=== PATIENT | male | born 1935 | race African-American/Black ===

== ENCOUNTER 2016-09-27 11:14 | Inpatient (IN) ==
--- NOTE | 2016-09-27 12:51 | Emergency Department Note ---
Disposition Clinical Impression: Wound of skin Disposition: Admitted As Inpatient Condition: Good General Adult HPI - General Chief complaint: ED General Medical Stated complaint: sent by wound care for admission Time Seen by Provider: 09/27/16 11:32 Source: patient, other Limitations: no limitations Nursing Notes Reviewed: Yes Vital Signs Reviewed: Yes - History of Present Illness HPI Narrative: A short history of significant peripheral vascular disease and a right above-the -knee amputation the presents from the wound care for admission secondary to skin breakdown in his inability to care for himself at home. Patient has not had fevers or chills or other infectious symptoms. After discussion with Dr. Daly the patient has a has cancer and kids that both work. Unable to care for himself at home. Patient does not have a primary care physician. Patient's skin breakdown is likely secondary to irritation from what she describes as urine burn. She recommends nystatin cream but no antibiotics at this time. Pain Scale: 9 - Related Data Home Medications Medication Instructions Recorded Confirmed Albuterol Sulfate [Proair 90 mcg IH AD 09/06/16 09/06/16 Respiclick] Aspirin [Lo-Dose Aspirin EC] 81 mg PO DAILY 09/06/16 09/06/16 Baclofen 10 mg PO TID 09/06/16 09/06/16 Clopidogrel [Plavix] 75 mg PO DAILY 09/06/16 09/06/16 Docusate [Colace] 100 mg PO DAILY 09/06/16 09/06/16 Gabapentin [Neurontin] 800 mg PO TID 09/06/16 09/06/16 Metoprolol [Lopressor] 12.5 mg PO DAILY 09/06/16 09/06/16 Mv-Mn/FA/Vit K/Lycop/Lut/Coq10 1 each PO DAILY 09/06/16 09/06/16 [Daily Multivitamin Capsule] Oxycodone HCl/Acetaminophen 1 each PO Q4H PRN 09/06/16 09/06/16 [Percocet 5-325 mg Tablet] Primidone [Mysoline] 50 mg PO Q8HR 09/06/16 09/06/16 Simvastatin [Zocor] 20 mg PO HS 09/06/16 09/06/16 traZODone [TraZODone] 50 mg PO HS 09/06/16 09/06/16 Previous Rx's Medication Instructions Recorded Mirtazapine 7.5 mg PO HS #30 tablet 09/06/16 Allergies Allergy/AdvReac Type Severity Reaction Status Date / Time No Known Allergies Allergy Verified 09/27/16 11:25 Review of Systems: CONSTITUTIONAL: No weight loss, fever, chills, weakness or fatigue. HEENT: Eyes: No visual changes. Ears, Nose, Throat: No hearing loss, difficulty talking or unable to swallow. SKIN: Skin wounds CARDIOVASCULAR: No chest pain, chest pressure or chest discomfort. No palpitations or edema. RESPIRATORY: No shortness of breath, cough or sputum. GASTROINTESTINAL: No anorexia, nausea, vomiting or diarrhea. No abdominal pain or blood. GENITOURINARY: No burning on urination or hematuria. NEUROLOGICAL: No headache, dizziness, syncope, paralysis, ataxia, numbness or tingling in the extremities. No change in bowel or bladder control. MUSCULOSKELETAL: No muscle pain, back pain, joint pain or stiffness. Past Medical History - Past Medical History Medical history: Reports: coronary artery disease, peripheral artery disease Surgical history: Reports: coronary bypass (CABG), other Psychiatric history: Reports: no psych history - Social History Smoking Status: Current every day smoker Smokeless Tobacco Status: No Alcohol use: Reports: none Drug use: Reports: none Physical Exam General appearance: NAD, conversant Eyes: anicteric sclerae, moist conjunctivae; PERRL HENT: Atraumatic; oropharynx clear with moist mucous membranes and no mucosal ulcerations Neck: Normal inspection; Trachea midline; FROM, supple Lungs: CTA, with normal respiratory effort and no intercostal retractions CV: RRR, no MRGs Abdomen: Soft, non-tender; no rebound or gaurding Extremities: Right AKA No peripheral edema or extremity lymphadenopathy Skin: The patient's buttocks and lower back have excoriations and redness consistent with loss of the epidermis secondary to irritation. Psych: Appropriate mood and affect Neuro: alert and oriented to person, place and time - General Limitations: no limitations General appearance: alert Course - Consultations Consultation #1: Discussed with Dr. Daly. Patient has had his nonhealing back wound that she believes is consistent with urine burn. The patient lives with his and kids however the has cancer and the kids both work. He has no primary care. Patient will need evaluated by social work as well as to have a Oshea placed in nystatin cream placed on his lower back. Consultation #2: Discussed with hospitalist. Patient accepted for admission. 1430 Vital Signs Temperature 97.9 F 09/27/16 11:25 Pulse Rate 109 09/27/16 11:25 Respiratory Rate 20 09/27/16 11:25 Blood Pressure 96/58 09/27/16 11:25 O2 Sat by Pulse Oximetry 92 09/27/16 11:25 Temperature 97.9 F 09/27/16 11:25 Pulse Rate 94 09/27/16 13:55 Respiratory Rate 18 09/27/16 15:11 Blood Pressure 118/56 09/27/16 15:11 O2 Sat by Pulse Oximetry 97 09/27/16 13:55 Oxygen Delivery Oxygen Delivery Room Air Medical Decision Making - MDM Narrative Medical decision making narrative: I examined this patient and my medical decision-making was reviewed with the Resident Physician. I agree with the documented findings, disposition and treatment plan as described except to the extent set forth below. Patient seen and evaluated today by Dr. Coronado and myself, high-grade his evaluation and management plan, supervised the care of the patient's stay. Patient's accompanied by family. He was sent in by [facility] Doctor Addy , for admission and social service evaluation. Patient's had breakdown on his skin. This appears to be first-degree breakdown from the top of his buttocks on his back. Dr. Daly suspected this may be from the patient urinating on himself. Family states he is not able Jansen side and only lays on his back. Patient has a history of peripheral vascular delay but no diabetes per them. Brain basic labs. Place a Oshea for hygiene reasons. Admit him and involve group social worker. Family's agreement with this plan as this patient. - Lab Data Result diagrams: 09/27/16 13:16 09/27/16 13:16 Lab Results 09/27/16 09/27/16 09/27/16 Range/Units 13:16 13:16 13:19 WBC 13.4 H (4.3-11.1) K/mcL RBC 5.23 (4.19-5.50) M/mcL Hgb 12.5 L (12.9-16.9) g/dL Hct 42.0 (37.5-50.1) % MCV 80.3 L (83.0-100.0) fL MCH 23.9 L (28.0-33.3) pg MCHC 29.8 L (31.6-35.5) g/dL RDW 13.2 (11.5-14.5) % Plt Count 187 (140-400) K/mcL MPV 12.0 (9.4-12.4) fL Immature Gran % 0.4 (0-4) % Seg Neutrophils % 75.0 % Lymphocytes % 14.4 % Monocytes % 6.2 % Eosinophils % 3.6 % Basophils % 0.4 % Neutrophils # 10.1 H (1.6-8.9) K/mcL Lymphocytes # 1.9 (0.6-4.6) K/mcL Monocytes # 0.8 (0.0-1.3) K/mcL Eosinophils # 0.5 (0.0-0.6) K/mcL Basophils # 0.1 (0.0-0.2) K/mcL Sodium 138 (136-145) mEq/L Potassium 4.1 (3.5-4.5) mEq/L Chloride 101 (98-109) mEq/L Carbon Dioxide 30 H (19-29) mEq/L BUN 16 (8-26) mg/dL Creatinine 0.70 L (0.72-1.25) mg/dL Est GFR ( Amer) > 60 (> 60) Est GFR (Non-Af Amer) > 60 (> 60) BUN/Creatinine Ratio 23 (6-26) Glucose 92 (70-99) mg/dL Calculated Osmolality 287 (280-300) Calcium 9.5 (8.6-10.8) mg/dL Total Bilirubin 0.5 (0.2-1.2) mg/dL AST 12 (5-34) Units/L ALT 6 (0-55) Units/L Alkaline Phosphatase 89 (38-126) Units/L Serum Total Protein 7.6 (6.0-8.3) g/dL Albumin 3.1 L (3.5-5.0) g/dL Globulin 4.5 H (2.4-3.5) g/dL Albumin/Globulin Ratio 0.7 L (1.1-2.2) Urine Color Dark Yellow (Yellow) Urine Clarity Turbid A (Clear) Urine pH 7.0 (5.0-8.0) pH Units Ur Specific [place] 1.023 (1.010-1.025) Urine Protein 100 H (Neg-Trace) mg/dL Urine Glucose (UA) Normal (Normal) mg/dL Urine Ketones Negative (Negative) mg/dL Urine Blood Trace H (Negative) Urine Nitrite Positive A (Negative) Urine Bilirubin Small H (Negative) Urine Urobilinogen Normal (Normal) mg/dL Ur Leukocyte Esterase Large H (Negative) Urine Microscopic RBC 5-15 H (0-3) per hpf Urine Microscopic WBC TNTC H (0-3) per hpf Ur Squamous Epith Cells Many H (None-Few) per lpf Urine Bacteria Many H (None-Few) per hpf Hyaline Casts Few (None-Few) per lpf Ur Culture Indicated? YES A (NO)
[2016-09-27 13:48] LABS: Basophils # 0.1 K/mcL (0.0-0.2); Basophils % 0.4 %; Eosinophils # 0.5 K/mcL (0.0-0.6); Eosinophils % 3.6 %; Hemoglobin 12.5 g/dL (12.9-16.9); Immature Granulocytes % 0.4 % (0-4); Lymphocytes # 1.9 K/mcL (0.6-4.6); Lymphocytes % 14.4 %; Mean Corpuscular HGB Conc 29.8 g/dL (31.6-35.5); Mean Corpuscular Hemoglobin 23.9 pg (28.0-33.3); Mean Corpuscular Volume 80.3 fL (83.0-100.0); Monocytes # 0.8 K/mcL (0.0-1.3); Monocytes % 6.2 %; Neutrophils # 10.1 K/mcL (1.6-8.9); Platelet Count 187 K/mcL (140-400); Red Blood Count 5.23 M/mcL (4.19-5.50); Red Cell Distribution Width 13.2 % (11.5-14.5)
[2016-09-27 14:00] LABS: Alanine Aminotransferase 6 Units/L (0-55); Albumin 3.1 g/dL (3.5-5.0); Albumin/Globulin Ratio 0.7 (1.1-2.2); Alkaline Phosphatase 89 Units/L (38-126); Aspartate Amino Transferase 12 Units/L (5-34); BUN/Creatinine Ratio 23 (6-26); Bilirubin,Total 0.5 mg/dL (0.2-1.2); Blood Urea Nitrogen 16 mg/dL (8-26); Calcium 9.5 mg/dL (8.6-10.8); Carbon Dioxide 30 mEq/L (19-29); Chloride 101 mEq/L (98-109); Globulin 4.5 g/dL (2.4-3.5); Glucose 92 mg/dL (70-99); Osmolality,Calculated 287 (280-300); Potassium 4.1 mEq/L (3.5-4.5); Sodium 138 mEq/L (136-145); Total Protein 7.6 g/dL (6.0-8.3); eGFR For African Americans > 60 (> 60); eGFR For Non-African Americans > 60 (> 60)
[2016-09-27 14:00] LABS: Bilirubin,Urine Small (Negative); Blood,Urine Trace (Negative); Clarity,Urine Turbid (Clear); Color,Urine Dark Yellow (Yellow); Glucose,Urine (UA) Normal (Normal); Ketones,Urine Negative (Negative); Leukocyte Esterase,Urine Large (Negative); Nitrite,Urine Positive (Negative); Protein,Urine 100 mg/dL (Neg-Trace); Specific Gravity,Urine 1.023 (1.010-1.025); Urobilinogen,Urine Normal (Normal)
[2016-09-27 14:02] LABS: Bacteria,Urine Many per hpf (None-Few); Hyaline Casts,Urine Few per lpf (None-Few); Squamous Epithelial Cell,Urine Many per lpf (None-Few); WBC,Urine TNTC per hpf (0-3)
[2016-09-27] MEDS ORDERED: Ondansetron ODT 4 MG TAB.RAPDIS SL PRN (15:15)
[2016-09-27] MEDS ORDERED: Naloxone 0.4 MG/ML INJ IVP PRN (15:15)
--- NOTE | 2016-09-27 15:35 | Internal Med History&Physical ---
<Delia Khan M - Last Filed: 09/27/16 22:43> Date of Encounter: 09/27/16 Time of Encounter: 15:23 Assessment and Plan (1) Sepsis Current visit: Yes Status: Acute Patient with UTI, cutaneous candidiasis, elevated WBC to 13.4, and he is tachycardic with HR 90s-100s, meeting criteria for sepsis. Blood cultures ordered Lactate ordered Antibiotics: vanc and rocephin ordered Blood pressure stable, will give fluids 0.9NS at 80mL/hr Qualifiers: Sepsis type: sepsis due to unspecified organism Qualified Code(s): A41.9 - Sepsis, unspecified organism (2) UTI (urinary tract infection) Current visit: Yes Status: Acute Patient reporting dysuria. UA consistent with UTI. IVPB Rocephin. Await culture results. Qualifiers: Urinary tract infection type: acute cystitis Hematuria presence: with hematuria Qualified Code(s): N30.01 - Acute cystitis with hematuria (3) Cutaneous candidiasis Current visit: Yes Status: Acute Patient with large area of skin breakdown and rash consistent with cutaneous candidiasis. Patient is incontinent of stool and urine, and is unable to clean himself up which is likely contributing to his candidiasis. Topical clotrimazole BID Continue home dose of PO fluconazole. Wound Care team consulted for further recommendations. (4) Failure to thrive Current visit: Yes Status: Chronic Patient reports he is unable to care for himself, is incontinent of stool and urine and not able to clean himself up. He has been losing weight and not eating as well. Social work consulted for dishcharge planning and likely placement to long-term care on discharge. Consults to Nutrition, PT and OT. Qualifiers: Failure to thrive age range: in adult Qualified Code(s): R62.7 - Adult failure to thrive (5) Wound of skin Current visit: Yes Status: Acute Patient with stage 2 breakdown on sacrum surrounded by the cutaneous candidiasis. Wound care team consulted for treatment. (6) DVT prophylaxis Current visit: Yes Status: Acute anti-embolic stockings Lovenox SQ daily Internal Medicine - H&P: HPI Chief complaint: failure to thrive, skin infection Admitted From: Emergency Dept Plans for Post Hospital Care: Transfer Obstetrics Tech Care History of present illness: Mr. Bartlett is a 81 year old male with hyperlipidemia, coronary artery disease status post CABG and stent placement, peripheral vascular disease status post right [id number] amputation presents to the emergency department today from the wound care clinic for complaints of nonhealing fungal rash on his backside. Patient has been following with the wound clinic as an outpatient and rashes worsened, there are concerns about patient's inability to care for self, as well as patient's family is not able to care for patient. Patient reports that rash is painful. He reports he is incontinent of stool and urine, and has pain and burning with urination. Patient denies any chest pain, palpitations, shortness of breath, headache, lightheadedness, fever or chills. He does report night sweats. Evaluation in the emergency department revealed elevated white blood cell count of 13.4. His urinalysis was consistent with UTI. Patient was tachycardic with heart rate in the low 100s or high 90s. Chest x- ray showed stable chronic small left pleural effusion. On exam, patient alert and oriented, mildly diaphoretic, in no acute distress. Lungs with mild rhonchi bilaterally, heart is regular rate and rhythm. Abdomen soft nontender positive bowel sounds. Patient has a large area of skin breakdown in his lower back, stage II in the sacral area surrounded by significant skin irritation consistent with cutaneous candidiasis. Past Med Surg Social Fam HX - Past Medical History Medical history: coronary artery disease, hyperlipidemia, peripheral artery disease Psychiatric history: no psych history - Past Surgical History Surgical History: coronary bypass (CABG), other (right AKA) - Social History Smoking Status: Current every day smoker (65 pack year history) Packs per day: 1 Smokeless Tobacco Status: No Alcohol use: none Drug use: none - Family History Mother Living Status: Age at : 78 Hx Family Cardiac Disorders: No Hx Family Respiratory Disorders: No Hx Family Cancer: No Hx Family GI Disorders: Yes Hx Family Endocrine Disorder: No Hx Family Neuromuscular Disorders: No Hx Family Neurologic Disorders: No Hx Family HEENT Disorders: No Hx Family Autoimmune Disorders: No Father Family Member Ethnicity: Unknown Living Status: Age at : 63 Cause of : MD Hx Family Cardiac Disorders: Yes Hx Family Respiratory Disorders: No Hx Family Cancer: No Hx Family GI Disorders: No Hx Family Endocrine Disorder: No Hx Family Neuromuscular Disorders: No Hx Family Neurologic Disorders: No Hx Family HEENT Disorders: No Hx Family Autoimmune Disorders: No Internal Medicine - H&P: Meds Aspirin [Lo-Dose Aspirin EC] 81 mg PO DAILY 09/06/16 [History] Baclofen 10 mg PO TID 09/06/16 [History] Clopidogrel [Plavix] 75 mg PO DAILY 09/06/16 [History] Docusate [Colace] 100 mg PO DAILY 09/06/16 [History] Gabapentin [Neurontin] 800 mg PO TID 09/06/16 [History] Metoprolol [Lopressor] 25 mg PO DAILY 09/06/16 [History] Mirtazapine 7.5 mg PO HS #30 tablet 09/06/16 [Rx] Mv-Mn/FA/Vit K/Lycop/Lut/Coq10 [Daily Multivitamin Capsule] 1 tab PO DAILY 09/06 [History] Oxycodone HCl/Acetaminophen [Percocet 5-325 mg Tablet] 1 tab PO Q4H PRN [History] Primidone [Mysoline] 100 mg PO Q8HR 09/06/16 [History] Simvastatin [Zocor] 20 mg PO HS 09/06/16 [History] traZODone [TraZODone] 50 mg PO HS 09/06/16 [History] Albuterol Sulfate [Ventolin Hfa] 2 puff IH Q6H PRN 09/27/16 [History] Cyanocobalamin (Vitamin B-12) [Vitamin B12] 1,000 mcg PO DAILY 09/27/16 [History ] Cyprohepatdine [Periactin] 4 mg PO TID 09/27/16 [History] Fluconazole [Diflucan] 100 mg PO DAILY 09/27/16 [History] Allergies No Known Allergies Allergy (Verified 09/27/16 11:25) All Systems PM: A 10-system review of systems was performed and is negative for pertinent findings except as documented above in the HPI. - Constitutional Constitutional: night sweats, no chills, no fever(s) - EENT Eyes: no change in vision, no discharge, no pain, no photophobia Ears: no ear discharge, no ear pain, no tinnitus Nose, mouth and throat: no dysphagia, no nasal discharge, no neck pain, no sore throat - Cardiovascular Cardiovascular ROS IM: no chest pain, no diaphoresis, no dyspnea, no lightheadedness, no palpitations, no syncope - Respiratory Respiratory: no cough, no dyspnea, no wheezing, no excessive phlegm production - Gastrointestinal Gastrointestinal: diarrhea, no abdominal pain, no hematemesis, no hematochezia, no melena, no nausea, no vomiting - Genitourinary Genitourinary ROS male: dysuria, urinary incontinence - Musculoskeletal Musculoskeletal ROS IM: no numbness, no tingling - Integumentary Integumentary IM: non-healing lesions, rash, skin ulcer, no unusual bruising - Neurological Neurological ROS: no confusion, no convulsions, no focal weakness, no numbness, no tingling, no tremor(s) - Hematologic/Lymphatic Hematologic/Lymphatic: no easy bruising - Constitutional Vitals: Temp Pulse Resp BP Pulse Ox 97.9 F 94 18 118/56 97 09/27/16 11:25 09/27/16 13:55 09/27/16 15:11 09/27/16 15:11 09/27/16 13:55 General appearance: Present: A&O X 3, pleasant, no acute distress - Head Head exam: Present: atraumatic, normocephalic - Eye Eye exam: Present: PERRL, conjuntiva pink, sclera anicteric Pupils: Present: PERRL - Neck Neck exam general surgery: Present: supple, trachea midline. Absent: lymphadenopathy - Respiratory Respiratory exam: Present: rhonchi. Absent: accessory muscle use, rales, wheezes - Cardiovascular Cardiovascular exam: Present: RRR, +S1, +S2. Absent: diastolic murmur, gallop, rubs, systolic murmur - GI/Abdominal GI/Abdominal exam: Present: normal bowel sounds, soft, no peritoneal signs. Absent: distended, tenderness - Extremities Exam Extremities exam: Present: warm, radial pulses palpable and symetrical. Absent : calf tenderness, cyanotic, pedal edema - Neurological Exam Neurological exam: Present: CN II-XII intact, oriented X3, no focal deficits. Absent: facial droop, speech deficit - Skin Skin exam: Present: excoriation Additional comments: Large area of skin break down and rash consistent with cutaneous candidiasis on lower back. Internal Med - H&P Results - Labs CBC & Chem 7: 09/27/16 13:16 09/27/16 13:16 Labs: All Lab Results (24 Hours) 09/27/16 09/27/16 09/27/16 Range/Units 13:16 13:16 13:19 WBC 13.4 H (4.3-11.1) K/mcL RBC 5.23 (4.19-5.50) M/mcL Hgb 12.5 L (12.9-16.9) g/dL Hct 42.0 (37.5-50.1) % MCV 80.3 L (83.0-100.0) fL MCH 23.9 L (28.0-33.3) pg MCHC 29.8 L (31.6-35.5) g/dL RDW 13.2 (11.5-14.5) % Plt Count 187 (140-400) K/mcL MPV 12.0 (9.4-12.4) fL Immature Gran % 0.4 (0-4) % Seg Neutrophils % 75.0 % Lymphocytes % 14.4 % Monocytes % 6.2 % Eosinophils % 3.6 % Basophils % 0.4 % Neutrophils # 10.1 H (1.6-8.9) K/mcL Lymphocytes # 1.9 (0.6-4.6) K/mcL Monocytes # 0.8 (0.0-1.3) K/mcL Eosinophils # 0.5 (0.0-0.6) K/mcL Basophils # 0.1 (0.0-0.2) K/mcL Sodium 138 (136-145) mEq/L Potassium 4.1 (3.5-4.5) mEq/L Chloride 101 (98-109) mEq/L Carbon Dioxide 30 H (19-29) mEq/L BUN 16 (8-26) mg/dL Creatinine 0.70 L (0.72-1.25) mg/dL Est GFR ( Amer) > 60 (> 60) Est GFR (Non-Af Amer) > 60 (> 60) BUN/Creatinine Ratio 23 (6-26) Glucose 92 (70-99) mg/dL Calculated Osmolality 287 (280-300) Calcium 9.5 (8.6-10.8) mg/dL Total Bilirubin 0.5 (0.2-1.2) mg/dL AST 12 (5-34) Units/L ALT 6 (0-55) Units/L Alkaline Phosphatase 89 (38-126) Units/L Serum Total Protein 7.6 (6.0-8.3) g/dL Albumin 3.1 L (3.5-5.0) g/dL Globulin 4.5 H (2.4-3.5) g/dL Albumin/Globulin Ratio 0.7 L (1.1-2.2) Urine Color Dark Yellow (Yellow) Urine Clarity Turbid A (Clear) Urine pH 7.0 (5.0-8.0) pH Units Ur Specific [place] 1.023 (1.010-1.025) Urine Protein 100 H (Neg-Trace) mg/dL Urine Glucose (UA) Normal (Normal) mg/dL Urine Ketones Negative (Negative) mg/dL Urine Blood Trace H (Negative) Urine Nitrite Positive A (Negative) Urine Bilirubin Small H (Negative) Urine Urobilinogen Normal (Normal) mg/dL Ur Leukocyte Esterase Large H (Negative) Urine Microscopic RBC 5-15 H (0-3) per hpf Urine Microscopic WBC TNTC H (0-3) per hpf Ur Squamous Epith Cells Many H (None-Few) per lpf Urine Bacteria Many H (None-Few) per hpf Hyaline Casts Few (None-Few) per lpf Ur Culture Indicated? YES A (NO) - Diagnostic Studies Chest x-ray Additional comments: Chest X-Ray 09/27/16 13:53 IMPRESSION: Stable chronic small left pleural effusion versus pleural parenchymal scarring. No acute cardiopulmonary disease. D/ / Gregory Mcclain MD / Gregory Mcclain MD Interpreting Provider: Gregory Mcclain MD <Joni Arevalo - Last Filed: 09/28/16 08:11> Date of Encounter: 09/28/16 Internal Medicine - H&P: HPI History of present illness: Mr. Bartlett is a 81 year old male All Systems PM: A 10-system review of systems was performed and is negative for pertinent findings except as documented above in the HPI. - Constitutional Vitals: Temp Pulse Resp BP Pulse Ox 98.2 F 96 18 148/79 95 09/28/16 06:48 07/29/17 06:48 09/28/16 06:48 09/28/16 06:48 09/28/16 06:48 Internal Med - H&P Results - Labs CBC & Chem 7: 09/28/16 05:27 09/28/16 05:27 Labs: Short CBC 09/28/16 Range/Units 05:27 WBC 10.2 (4.3-11.1) K/mcL Hgb 11.5 L (12.9-16.9) g/dL Hct 37.7 (37.5-50.1) % Plt Count 179 (140-400) K/mcL Neutrophils # 7.0 (1.6-8.9) K/mcL BMP 09/28/16 05:27 Sodium 138 Potassium 3.7 Chloride 105 Carbon Dioxide 25 BUN 13 Creatinine 0.58 L Glucose 72 Calcium 8.6 - Attending Attestation I have personally performed a face to face evaluation on this patient and I discussed the assessment and plan with the nurse practitioner. I have reviewed and agree with the documented care plan. History and Exam by me shows: Mr. Bartlett is a 81 year old male with hyperlipidemia, coronary artery disease status post CABG and stent placement, peripheral vascular disease status post right [id number] amputation presents to the emergency department today from the wound care clinic for complaints of nonhealing fungal rash on his backside. Patient has been following with the wound clinic as an outpatient and rashes worsened, there are concerns about patient's inability to care for self, as well as patient's family is not able to care for patient. Gen: A,A, O X 3 Back: extensive erythematous rash spreading from mid buttock to lower lumbar region b/l. Several open areas with out any discharge / drianage noticed a/p 1. Sepsis with UTI and Lower back cellulitis 2. Lower back skin excoriation due to urine associated contact dermatitis 3. Cutaneous candidiasis Placed him on broad spec abx Vancomycin and Rocephin Topical anti fungal cream consulted SW for possible SNF placement for pt's severe deconditioning
[2016-09-27] MEDS ORDERED: Vancomycin 1,000 MG in D5% in Water 250 ML IVPB SCH (16:00)
[2016-09-27] MEDS: 0.9 % Sodium Chloride 1,000 ML IVC SCH (17:10)
[2016-09-27] MEDS: Vancomycin 1,000 MG in D5% in Water 250 ML IVPB SCH (17:11)
[2016-09-28] MEDS: Primidone 50 MG TABLET PO SCH ×4 (02:21→22:03)
[2016-09-28] MEDS: Cyprohepatdine 4 MG TABLET PO SCH ×4 (02:22→22:04)
[2016-09-28] MEDS: Mirtazapine 15 MG TABLET PO SCH ×2 (02:22→22:04)
[2016-09-28] MEDS: *HR* Enoxaparin 40 MG/0.4 ML SYRINGE SQ SCH (06:08)
[2016-09-28 07:07] LABS: Basophils # 0.1 K/mcL (0.0-0.2); Basophils % 0.5 %; Eosinophils # 0.5 K/mcL (0.0-0.6); Eosinophils % 4.7 %; Hematocrit 37.7 % (37.5-50.1); Hemoglobin 11.5 g/dL (12.9-16.9); Immature Granulocytes % 0.3 % (0-4); Lymphocytes % 19.9 %; Mean Corpuscular HGB Conc 30.5 g/dL (31.6-35.5); Mean Corpuscular Hemoglobin 24.4 pg (28.0-33.3); Mean Platelet Volume 12.8 fL (9.4-12.4); Monocytes # 0.7 K/mcL (0.0-1.3); Monocytes % 6.5 %; Platelet Count 179 K/mcL (140-400); Red Blood Count 4.71 M/mcL (4.19-5.50); Red Cell Distribution Width 13.2 % (11.5-14.5); Segmented Neutrophils % 68.1 %
[2016-09-28 07:31] LABS: BUN/Creatinine Ratio 22 (6-26); Blood Urea Nitrogen 13 mg/dL (8-26); Carbon Dioxide 25 mEq/L (19-29); Chloride 105 mEq/L (98-109); Potassium 3.7 mEq/L (3.5-4.5); Sodium 138 mEq/L (136-145)
[2016-09-28 07:32] LABS: Calcium 8.6 mg/dL (8.6-10.8); Glucose 72 mg/dL (70-99); Osmolality,Calculated 285 (280-300); eGFR For African Americans > 60 (> 60); eGFR For Non-African Americans > 60 (> 60)
[2016-09-28] MEDS: 0.9 % Sodium Chloride 1,000 ML IVC SCH (08:14)
[2016-09-28] MEDS: Aspirin Enteric Coated 81 MG Tablet PO SCH (08:14)
[2016-09-28] MEDS: Fluconazole 100 MG TABLET PO SCH (08:14)
[2016-09-28] MEDS: Baclofen 10 MG TABLET PO SCH ×3 (08:14→22:04)
[2016-09-28] MEDS: Gabapentin 400 MG CAPSULE PO SCH ×3 (08:14→22:04)
[2016-09-28] MEDS: Clotrimazole 1% CRM 15 GM TUBE TP SCH (08:15)
--- NOTE | 2016-09-28 14:41 | Internal Med Progress Note ---
Date of Encounter: 09/29/16 Time of Encounter: 14:29 - Assessment and plan (1) Sepsis Current Visit: Yes Status: Acute Assessment and plan: Urine culture: Pending. Blood culture: Pending Tachycardia is settling down. Presently on vancomycin/ceftriaxone. Plan: We will continue same antibiotics for now. Qualifiers: Sepsis type: sepsis due to unspecified organism Qualified Code(s): A41.9 - Sepsis, unspecified organism (2) UTI (urinary tract infection) Current Visit: Yes Status: Acute Assessment and plan: Urinary tract infection is the likely source for sepsis. Presently on appropriate antibiotics. Awaiting for blood/urine cultures. Qualifiers: Urinary tract infection type: acute cystitis Hematuria presence: with hematuria Qualified Code(s): N30.01 - Acute cystitis with hematuria (3) Wound of skin Current Visit: Yes Status: Acute Assessment and plan: Patient has a likely stage II sacral ulcer surrounded by possible candidiasis Wound care consult ordered by admitting team. (4) Failure to thrive Current Visit: Yes Status: Chronic Assessment and plan: Poor support system. Unable to take care of himself. 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 Qualifiers: Failure to thrive age range: in adult Qualified Code(s): R62.7 - Adult failure to thrive (5) DVT prophylaxis Current Visit: Yes Status: Acute Assessment and plan: Antiembolic stockings. - Subjective Interval history: Patient seen and examined. Chart reviewed. Patient is comfortably lying in bed. Patient denies chest pain, shortness of breath, abdominal pain, nausea, vomiting , diarrhea and dizziness - Constitutional Vitals: Temp Pulse Resp BP Pulse Ox 98.5 F 94 16 154/76 96 09/28/16 10:08 09/28/16 10:08 09/28/16 10:08 09/28/16 10:08 09/28/16 10:08 General appearance: Present: A&O X 3, pleasant, no acute distress - Head Head exam: Present: atraumatic, normocephalic - Eye Eye exam: Present: PERRL, conjuntiva pink, sclera anicteric Pupils: Present: PERRL - Neck Neck exam general surgery: Present: supple, trachea midline. Absent: lymphadenopathy - Respiratory Respiratory exam: Present: CTAB. Absent: accessory muscle use, rales, rhonchi, wheezes - Cardiovascular Cardiovascular exam: Present: RRR, +S1, +S2. Absent: diastolic murmur, gallop, rubs, systolic murmur - GI/Abdominal GI/Abdominal exam: Present: normal bowel sounds, soft, no peritoneal signs. Absent: distended, tenderness - Extremities Exam Extremities exam: Present: warm, radial pulses palpable and symetrical. Absent : calf tenderness, cyanotic, pedal edema Additional comments: Right below-knee amputation - Neurological Exam Neurological exam: Present: CN II-XII intact, oriented X3, no focal deficits. Absent: pronater drift, facial droop, speech deficit - Skin Skin exam: Present: dry, intact Internal Medicine: Result - Labs CBC & Chem 7: 09/28/16 05:27 09/28/16 05:27 Labs: Short CBC 09/28/16 Range/Units 05:27 WBC 10.2 (4.3-11.1) K/mcL Hgb 11.5 L (12.9-16.9) g/dL Hct 37.7 (37.5-50.1) % Plt Count 179 (140-400) K/mcL Neutrophils # 7.0 (1.6-8.9) K/mcL BMP 09/28/16 05:27 Sodium 138 Potassium 3.7 Chloride 105 Carbon Dioxide 25 BUN 13 Creatinine 0.58 L Glucose 72 Calcium 8.6 - VTE Documentation of Mechanical Device: Graduated compression elastic hosiery Consult Discharge Plan - Plan Referrals: NONE,PCP [Primary Care Provider] -
[2016-09-28] MEDS: Vancomycin 1,000 MG in D5% in Water 250 ML IVPB SCH (15:38)
[2016-09-28] MEDS: traZODone 50 MG TABLET PO SCH (22:04)
[2016-09-29] MEDS: 0.9 % Sodium Chloride 1,000 ML IVC SCH ×3 (00:02→22:18)
[2016-09-29] MEDS: Primidone 50 MG TABLET PO SCH ×3 (05:38→22:14)
[2016-09-29] MEDS: *HR* Enoxaparin 40 MG/0.4 ML SYRINGE SQ SCH (05:38)
[2016-09-29] MEDS: Clotrimazole 1% CRM 15 GM TUBE TP SCH ×4 (05:39→23:37)
[2016-09-29] MEDS: Gabapentin 400 MG CAPSULE PO SCH ×3 (09:33→22:14)
[2016-09-29] MEDS: Aspirin Enteric Coated 81 MG Tablet PO SCH (09:33)
[2016-09-29] MEDS: Acetaminophen 325 MG TABLET PO PRN (09:33)
[2016-09-29] MEDS: Cyprohepatdine 4 MG TABLET PO SCH ×3 (09:33→22:15)
[2016-09-29] MEDS: Baclofen 10 MG TABLET PO SCH ×3 (09:33→22:14)
[2016-09-29] MEDS: Fluconazole 100 MG TABLET PO SCH (09:33)
[2016-09-29] MEDS: Nystatin POWDER 30 GM BOTTLE TP SCH ×3 (14:13→23:37)
[2016-09-29] MEDS: Vancomycin 1,000 MG in D5% in Water 250 ML IVPB SCH (15:28)
--- NOTE | 2016-09-29 17:46 | Internal Med Progress Note ---
Date of Encounter: 09/29/16 Time of Encounter: 17:44 - Assessment and plan (1) Sepsis Current Visit: Yes Status: Acute Assessment and plan: Urine culture: Pending. Blood culture: Pending Tachycardia is settling down. Presently on vancomycin/ceftriaxone. Plan: We will continue same antibiotics for now. 09/29/2016. Urine culture: Proteus mirabilis: Pansensitive strain. Blood cultures: Negative growths so far. Vital parameters are improving. Plan: Discontinue vancomycin. We will continue ceftriaxone intravenously. Qualifiers: Sepsis type: sepsis due to unspecified organism Qualified Code(s): A41.9 - Sepsis, unspecified organism (2) UTI (urinary tract infection) Current Visit: Yes Status: Acute Assessment and plan: Urinary tract infection is the likely source for sepsis. Presently on appropriate antibiotics. Awaiting for blood/urine cultures. 09/29/2016. Urinary tract infection is likely secondary to Proteus mirabilis. Proteus mirabilis is pansensitive. Patient is on ceftriaxone. Qualifiers: Urinary tract infection type: acute cystitis Hematuria presence: with hematuria Qualified Code(s): N30.01 - Acute cystitis with hematuria (3) Wound of skin Current Visit: Yes Status: Acute Assessment and plan: Patient has a likely stage II sacral ulcer surrounded by possible candidiasis Wound care consult ordered by admitting team. (4) Failure to thrive Current Visit: Yes Status: Chronic Assessment and plan: Poor support system. Unable to take care of himself. 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 Qualifiers: Failure to thrive age range: in adult Qualified Code(s): R62.7 - Adult failure to thrive (5) DVT prophylaxis Current Visit: Yes Status: Acute Assessment and plan: Antiembolic stockings. - Subjective Interval history: Patient seen and examined. Chart reviewed. Patient is comfortably lying in bed. Patient denies chest pain, shortness of breath, abdominal pain, nausea, vomiting , diarrhea and dizziness 09/29/2016. Patient is comfortably lying in the bed. Chart reviewed. Asians seen and examined along with the resident. Patient denies any dysuria, shortness of breath, abdominal pain or vomiting. - Constitutional Vitals: Temp Pulse Resp BP Pulse Ox 98.3 F 84 16 103/68 95 09/29/16 15:11 09/29/16 15:11 09/29/16 15:11 09/29/16 15:11 09/29/16 15:11 General appearance: Present: A&O X 3, pleasant, no acute distress - Head Head exam: Present: atraumatic, normocephalic - Eye Eye exam: Present: PERRL, conjuntiva pink, sclera anicteric Pupils: Present: PERRL - Neck Neck exam general surgery: Present: supple, trachea midline. Absent: lymphadenopathy - Respiratory Respiratory exam: Present: CTAB. Absent: accessory muscle use, rales, rhonchi, wheezes - Cardiovascular Cardiovascular exam: Present: RRR, +S1, +S2. Absent: diastolic murmur, gallop, rubs, systolic murmur - GI/Abdominal GI/Abdominal exam: Present: normal bowel sounds, soft, no peritoneal signs. Absent: distended, tenderness - Extremities Exam Extremities exam: Present: warm, radial pulses palpable and symetrical. Absent : calf tenderness, cyanotic, pedal edema - Neurological Exam Neurological exam: Present: CN II-XII intact, oriented X3, no focal deficits. Absent: pronater drift, facial droop, speech deficit - Skin Skin exam: Present: dry, intact Internal Medicine: Result - Labs CBC & Chem 7: 09/28/16 05:27 09/28/16 05:27 - VTE Documentation of Mechanical Device: Graduated compression elastic hosiery Consult Discharge Plan - Plan Referrals: NONE,PCP [Primary Care Provider] -
[2016-09-29] MEDS: traZODone 50 MG TABLET PO SCH (22:14)
[2016-09-29] MEDS: Mirtazapine 15 MG TABLET PO SCH (22:15)
[2016-09-30] MEDS: *HR* Enoxaparin 40 MG/0.4 ML SYRINGE SQ SCH (05:18)
[2016-09-30] MEDS: Primidone 50 MG TABLET PO SCH ×3 (05:19→20:27)
[2016-09-30] MEDS: 0.9 % Sodium Chloride 1,000 ML IVC SCH ×2 (05:19→19:20)
[2016-09-30] MEDS: Aspirin Enteric Coated 81 MG Tablet PO SCH (09:30)
[2016-09-30] MEDS: Gabapentin 400 MG CAPSULE PO SCH ×3 (09:30→20:26)
[2016-09-30] MEDS: Cyprohepatdine 4 MG TABLET PO SCH ×3 (09:30→20:26)
[2016-09-30] MEDS: Fluconazole 100 MG TABLET PO SCH (09:30)
[2016-09-30] MEDS: Baclofen 10 MG TABLET PO SCH ×3 (09:32→20:26)
[2016-09-30] MEDS: Nystatin POWDER 30 GM BOTTLE TP SCH (09:33)
--- NOTE | 2016-09-30 18:31 | Internal Med Progress Note ---
Date of Encounter: 09/30/16 Time of Encounter: 18:29 - Assessment and plan (1) Sepsis Current Visit: Yes Status: Acute Assessment and plan: Urine culture: Pending. Blood culture: Pending Tachycardia is settling down. Presently on vancomycin/ceftriaxone. Plan: We will continue same antibiotics for now. 09/29/2016. Urine culture: Proteus mirabilis: Pansensitive strain. Blood cultures: Negative growths so far. Vital parameters are improving. Plan: Discontinue vancomycin. We will continue ceftriaxone intravenously. 09/30/2016 Urine culture: Proteus mirabilis: Pansensitive strain. Blood culture: Negative so far Patient is still having urinary symptoms. Ceftriaxone: Day 4 Plan: Will continue IV in divided for next 2-3 days. Patient has persistent pain/dysuria: He might get benefit from a abdominal scan to rule out any pyelonephritis /perinephric abscess Qualifiers: Sepsis type: sepsis due to unspecified organism Qualified Code(s): A41.9 - Sepsis, unspecified organism (2) UTI (urinary tract infection) Current Visit: Yes Status: Acute Assessment and plan: Urinary tract infection is the likely source for sepsis. Presently on appropriate antibiotics. Awaiting for blood/urine cultures. 09/29/2016. Urinary tract infection is likely secondary to Proteus mirabilis. Proteus mirabilis is pansensitive. Patient is on ceftriaxone. 09/30/2016 See above Qualifiers: Urinary tract infection type: acute cystitis Hematuria presence: with hematuria Qualified Code(s): N30.01 - Acute cystitis with hematuria (3) Wound of skin Current Visit: Yes Status: Acute Assessment and plan: Patient has a likely stage II sacral ulcer surrounded by possible candidiasis Wound care consult ordered by admitting team. (4) Failure to thrive Current Visit: Yes Status: Chronic Assessment and plan: Poor support system. Unable to take care of himself. 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 Qualifiers: Failure to thrive age range: in adult Qualified Code(s): R62.7 - Adult failure to thrive (5) DVT prophylaxis Current Visit: Yes Status: Acute Assessment and plan: Antiembolic stockings. - Subjective Interval history: Patient seen and examined. Chart reviewed. Patient is comfortably lying in bed. Patient denies chest pain, shortness of breath, abdominal pain, nausea, vomiting , diarrhea and dizziness 09/29/2016. Patient is comfortably lying in the bed. Chart reviewed. Asians seen and examined along with the resident. Patient denies any dysuria, shortness of breath, abdominal pain or vomiting. 09/30/2016 Patient seen and examined. Chart reviewed. Patient is comfortably lying in the bed. patient is still complaining of urinary symptoms. Patient denies chest pain, shortness of breath, abdominal pain, diarrhea and dizziness - Constitutional Vitals: Temp Pulse Resp BP Pulse Ox 98.0 F 71 15 129/66 97 09/30/16 15:02 09/30/16 15:02 09/30/16 15:02 09/30/16 15:02 09/30/16 15:02 General appearance: Present: A&O X 3, pleasant, no acute distress - Head Head exam: Present: atraumatic, normocephalic - Eye Eye exam: Present: PERRL, conjuntiva pink, sclera anicteric Pupils: Present: PERRL - Neck Neck exam general surgery: Present: supple, trachea midline. Absent: lymphadenopathy - Respiratory Respiratory exam: Present: CTAB. Absent: accessory muscle use, rales, rhonchi, wheezes - Cardiovascular Cardiovascular exam: Present: RRR, +S1, +S2. Absent: diastolic murmur, gallop, rubs, systolic murmur - GI/Abdominal GI/Abdominal exam: Present: normal bowel sounds, soft, no peritoneal signs. Absent: distended, tenderness - Extremities Exam Extremities exam: Present: warm, radial pulses palpable and symetrical. Absent : calf tenderness, cyanotic, pedal edema - Neurological Exam Neurological exam: Present: CN II-XII intact, oriented X3, no focal deficits. Absent: pronater drift, facial droop, speech deficit - Skin Skin exam: Present: dry, intact Internal Medicine: Result - Labs CBC & Chem 7: 09/28/16 05:27 09/28/16 05:27 - VTE Documentation of Mechanical Device: Graduated compression elastic hosiery Consult Discharge Plan - Plan Referrals: NONE,PCP [Primary Care Provider] -
[2016-09-30] MEDS: traZODone 50 MG TABLET PO SCH (20:26)
[2016-09-30] MEDS: Mirtazapine 15 MG TABLET PO SCH (20:26)
[2016-09-30] MEDS: Acetaminophen 325 MG TABLET PO PRN (21:38)
[2016-10-01 04:30] LABS: Basophils % 0.5 %; Eosinophils # 0.8 K/mcL (0.0-0.6); Eosinophils % 9.3 %; Hematocrit 34.4 % (37.5-50.1); Hemoglobin 10.2 g/dL (12.9-16.9); Immature Granulocytes % 0.2 % (0-4); Lymphocytes % 25.3 %; Mean Corpuscular HGB Conc 29.7 g/dL (31.6-35.5); Mean Corpuscular Hemoglobin 23.9 pg (28.0-33.3); Mean Corpuscular Volume 80.6 fL (83.0-100.0); Mean Platelet Volume 11.8 fL (9.4-12.4); Monocytes # 0.7 K/mcL (0.0-1.3); Monocytes % 8.9 %; Neutrophils # 4.5 K/mcL (1.6-8.9); Platelet Count 191 K/mcL (140-400); Red Blood Count 4.27 M/mcL (4.19-5.50); Red Cell Distribution Width 13.2 % (11.5-14.5); Segmented Neutrophils % 55.8 %
[2016-10-01 04:56] LABS: Alanine Aminotransferase 6 Units/L (0-55); Albumin 2.4 g/dL (3.5-5.0); Albumin/Globulin Ratio 0.7 (1.1-2.2); Alkaline Phosphatase 72 Units/L (38-126); Aspartate Amino Transferase 16 Units/L (5-34); BUN/Creatinine Ratio 13 (6-26); Bilirubin,Total 0.4 mg/dL (0.2-1.2); Blood Urea Nitrogen 7 mg/dL (8-26); Calcium 8.5 mg/dL (8.6-10.8); Carbon Dioxide 26 mEq/L (19-29); Chloride 112 mEq/L (98-109); Globulin 3.5 g/dL (2.4-3.5); Glucose 81 mg/dL (70-99); Osmolality,Calculated 295 (280-300); Sodium 144 mEq/L (136-145); Total Protein 5.9 g/dL (6.0-8.3); eGFR For African Americans > 60 (> 60); eGFR For Non-African Americans > 60 (> 60)
[2016-10-01 04:59] LABS: Potassium 4.1 mEq/L (3.5-4.5)
[2016-10-01] MEDS: *HR* Enoxaparin 40 MG/0.4 ML SYRINGE SQ SCH (06:33)
[2016-10-01] MEDS: Primidone 50 MG TABLET PO SCH ×3 (06:33→22:53)
[2016-10-01] MEDS: 0.9 % Sodium Chloride 1,000 ML IVC SCH ×2 (08:30→22:55)
[2016-10-01] MEDS: Gabapentin 400 MG CAPSULE PO SCH ×3 (08:31→21:11)
[2016-10-01] MEDS: Cyprohepatdine 4 MG TABLET PO SCH (08:31)
[2016-10-01] MEDS: Aspirin Enteric Coated 81 MG Tablet PO SCH (08:32)
[2016-10-01] MEDS: Baclofen 10 MG TABLET PO SCH ×3 (08:32→21:12)
[2016-10-01] MEDS: Fluconazole 100 MG TABLET PO SCH (08:32)
[2016-10-01] MEDS: Nystatin POWDER 30 GM BOTTLE TP SCH (08:33)
--- NOTE | 2016-10-01 17:26 | Internal Med Progress Note ---
Date of Encounter: 10/01/16 Time of Encounter: 08:35 - Assessment and plan (1) Sepsis Current Visit: Yes Status: Acute Assessment and plan: Sepsis present on admission secondary to urinary tract infection - now improving Urine culture: Proteus mirabilis Blood culture: Negative Tachycardia is settling down. Continue IV Rocephin Continue IV fluids, anticipate discharge to ECF Qualifiers: Sepsis type: sepsis due to unspecified organism Qualified Code(s): A41.9 - Sepsis, unspecified organism (2) UTI (urinary tract infection) Current Visit: Yes Status: Acute Assessment and plan: Plan as above Qualifiers: Urinary tract infection type: acute cystitis Hematuria presence: with hematuria Qualified Code(s): N30.01 - Acute cystitis with hematuria (3) Wound of skin Current Visit: Yes Status: Acute Assessment and plan: Stage II sacral ulcer - wound care consult (4) Failure to thrive Current Visit: Yes Status: Chronic Assessment and plan: teleservices representative consult - anticipate discharge to ECF Qualifiers: Failure to thrive age range: in adult Qualified Code(s): R62.7 - Adult failure to thrive (5) DVT prophylaxis Current Visit: Yes Status: Acute Assessment and plan: Continue Lovenox - Time Spent With Patient less than 15 minutes - Subjective Interval history: Examined this morning. Patient is awake and alert. Not in any distress. Denies chest pain or shortness of breath. No fever. Denies abdominal pain or vomiting or diarrhea. Good urine output. No acute events or complaints. - Constitutional Vitals: Temp Pulse Resp BP Pulse Ox 98.3 F 83 18 120/70 96 10/01/16 14:58 10/01/16 14:58 10/01/16 14:58 10/01/16 14:58 10/01/16 14:58 General appearance: Present: cachectic, A&O X 3, pleasant, no acute distress, answers questions appropriately Exam: Generalized weakness, ill-appearing - Head Head exam: Present: atraumatic - Eye Eye exam: Present: EOMI - Neck Neck exam general surgery: Present: supple - Respiratory Respiratory exam: Present: CTAB. Absent: rhonchi, wheezes, tachypnea - Cardiovascular Cardiovascular exam: Present: RRR, +S1, +S2 - GI/Abdominal GI/Abdominal exam: Present: soft, no peritoneal signs. Absent: firm, guarding, rigid, tenderness - Extremities Exam Extremities exam: Present: radial pulses palpable and symetrical. Absent: cyanotic, pedal edema, tenderness - Neurological Exam Neurological exam: Present: alert, oriented X3, no focal deficits. Absent: facial droop, speech deficit - Skin Additional comments: Stage II sacral ulcer present Internal Medicine: Result - Labs CBC & Chem 7: 10/01/16 03:39 10/01/16 03:39 Labs: Short CBC 10/01/16 Range/Units 03:39 WBC 8.1 (4.3-11.1) K/mcL Hgb 10.2 L (12.9-16.9) g/dL Hct 34.4 L (37.5-50.1) % Plt Count 191 (140-400) K/mcL Neutrophils # 4.5 (1.6-8.9) K/mcL BMP 10/01/16 03:39 Sodium 144 Potassium 4.1 Chloride 112 H Carbon Dioxide 26 BUN 7 L Creatinine 0.54 L Glucose 81 Calcium 8.5 L Liver Function 10/01/16 Range/Units 03:39 Total Bilirubin 0.4 (0.2-1.2) mg/dL AST 16 (5-34) Units/L ALT 6 (0-55) Units/L Alkaline Phosphatase 72 (38-126) Units/L Albumin 2.4 L (3.5-5.0) g/dL - VTE Documentation of Mechanical Device: Graduated compression elastic hosiery Consult Discharge Plan - Plan Referrals: NONE,PCP [Primary Care Provider] -
[2016-10-01] MEDS: Mirtazapine 15 MG TABLET PO SCH (21:11)
[2016-10-01] MEDS: traZODone 50 MG TABLET PO SCH (21:11)
[2016-10-02] MEDS: *HR* Enoxaparin 40 MG/0.4 ML SYRINGE SQ SCH (05:22)
[2016-10-02] MEDS: Primidone 50 MG TABLET PO SCH (06:05)
[2016-10-02 06:12] LABS: Basophils # 0.1 K/mcL (0.0-0.2); Basophils % 0.5 %; Eosinophils # 0.7 K/mcL (0.0-0.6); Eosinophils % 6.7 %; Hematocrit 38.9 % (37.5-50.1); Hemoglobin 11.7 g/dL (12.9-16.9); Immature Granulocytes % 0.3 % (0-4); Lymphocytes # 1.8 K/mcL (0.6-4.6); Lymphocytes % 16.9 %; Mean Corpuscular HGB Conc 30.1 g/dL (31.6-35.5); Mean Corpuscular Hemoglobin 24.2 pg (28.0-33.3); Mean Corpuscular Volume 80.4 fL (83.0-100.0); Mean Platelet Volume 11.9 fL (9.4-12.4); Monocytes # 0.8 K/mcL (0.0-1.3); Monocytes % 7.9 %; Neutrophils # 7.2 K/mcL (1.6-8.9); Platelet Count 199 K/mcL (140-400); Red Blood Count 4.84 M/mcL (4.19-5.50); Red Cell Distribution Width 13.4 % (11.5-14.5); Segmented Neutrophils % 67.7 %
[2016-10-02 06:36] LABS: BUN/Creatinine Ratio 13 (6-26); Blood Urea Nitrogen 8 mg/dL (8-26); Calcium 8.7 mg/dL (8.6-10.8); Carbon Dioxide 26 mEq/L (19-29); Chloride 109 mEq/L (98-109); Glucose 80 mg/dL (70-99); Osmolality,Calculated 289 (280-300); Potassium 3.9 mEq/L (3.5-4.5); Sodium 141 mEq/L (136-145); eGFR For African Americans > 60 (> 60); eGFR For Non-African Americans > 60 (> 60)
[2016-10-02] MEDS: Aspirin Enteric Coated 81 MG Tablet PO SCH (09:36)
[2016-10-02] MEDS: Fluconazole 100 MG TABLET PO SCH (09:37)
[2016-10-02] MEDS: Baclofen 10 MG TABLET PO SCH (09:37)
[2016-10-02] MEDS: Gabapentin 400 MG CAPSULE PO SCH (09:42)
[2016-10-02] MEDS: Nystatin POWDER 30 GM BOTTLE TP SCH (09:45)
[2016-10-02] MEDS: 0.9 % Sodium Chloride 1,000 ML IVC SCH (09:55)
[2016-10-02 12:11] VITALS: BP 107/64
--- NOTE | 2016-10-02 13:44 | Discharge Summary ---
Date of Encounter: 10/02/16 Time of Encounter: 08:40 - Discharge Diagnosis (1) Sepsis Priority: Primary Status: Acute Comments: Secondary to UTI now improved Qualifiers: Sepsis type: sepsis due to unspecified organism Qualified Code(s): A41.9 - Sepsis, unspecified organism (2) UTI (urinary tract infection) Priority: Primary Status: Acute Comments: Urine culture positive for Proteus mirabilis sensitive to Bactrim Qualifiers: Urinary tract infection type: acute cystitis Hematuria presence: with hematuria Qualified Code(s): N30.01 - Acute cystitis with hematuria (3) Cutaneous candidiasis Priority: Primary Status: Acute Comments: Large area of skin breakdown and rash consistent with cutaneous candidiasis, continue topical clotrimazole, continue PO fluconazole (4) Wound of skin Priority: Primary Status: Acute Comments: Stage II breakdown on sacrum, wound care (5) Failure to thrive Priority: Primary Status: Chronic Comments: Patient unable to care for herself, incontinent of stool and urine at times, unable to feed himself, discharged to ECF Qualifiers: Failure to thrive age range: in adult Qualified Code(s): R62.7 - Adult failure to thrive - Discharge Medications Prescriptions: Sulfamethoxazole/Trimeth DS [Bactrim DS] 1 each PO BID 10 Days Home Medications: Aspirin [Lo-Dose Aspirin EC] 81 mg PO DAILY 09/06/16 [History] Baclofen 10 mg PO TID 09/06/16 [History] Clopidogrel [Plavix] 75 mg PO DAILY 09/06/16 [History] Docusate [Colace] 100 mg PO DAILY 09/06/16 [History] Gabapentin [Neurontin] 800 mg PO TID 09/06/16 [History] Metoprolol [Lopressor] 25 mg PO DAILY 09/06/16 [History] Mirtazapine 7.5 mg PO HS #30 tablet 09/06/16 [Rx] Mv-Mn/FA/Vit K/Lycop/Lut/Coq10 [Daily Multivitamin Capsule] 1 tab PO DAILY 09/06 [History] Oxycodone HCl/Acetaminophen [Percocet 5-325 mg Tablet] 1 tab PO Q4H PRN [History] Primidone [Mysoline] 100 mg PO Q8HR 09/06/16 [History] Simvastatin [Zocor] 20 mg PO HS 09/06/16 [History] traZODone [TraZODone] 50 mg PO HS 09/06/16 [History] Albuterol Sulfate [Ventolin Hfa] 2 puff IH Q6H PRN 09/27/16 [History] Cyanocobalamin (Vitamin B-12) [Vitamin B12] 1,000 mcg PO DAILY 09/27/16 [History ] Cyprohepatdine [Periactin] 4 mg PO TID 09/27/16 [History] Fluconazole [Diflucan] 100 mg PO DAILY 09/27/16 [History] Sulfamethoxazole/Trimeth DS [Bactrim DS] 1 each PO BID 10 Days 10/02/16 [Rx] Allergies/Adverse Reactions: Allergies No Known Allergies Allergy (Verified 09/27/16 11:25) Date of admission: 09/27/16 16:24 Primary care physician: PCP NONE Consults: 09/27/16 16:43 Consult to Wound Care [CONS] Routine Reason for Consult: stage II pressure wound coccyx Call Completed: Yes 09/27/16 22:44 Consult to Occupational Therapy [CONS] Routine Comment: Evaluate, develop and implement POC Reason for Consult: unable to perform ADLs. Consult to Physical Therapy [CONS] Routine Comment: Evaluate, develop and implement POC Reason for Consult: unable to perform ADLs. Anticipated date of discharge: 10/02/16 - Patient Status Disposition: Transfer SNF Condition: Good Functional capacity at discharge: wheelchair bound Overall status at discharge: patient is back to baseline - Discharge Instructions Instructions: Failure to Thrive (DC), Urinary Tract Infection in Men (DC) Follow Up With: NONE,PCP [Primary Care Provider] - - Diet and Activity Activity: as per physical therapy, increase activity as tolerated Diet: advance to your usual diet Hospital course: Mr. Bartlett is a 81 year old male with past medical history of coronary artery disease, hyperlipidemia, peripheral artery disease, right AKA and failure to thrive. He presented to the ED with complaints of nonhealing fungal rash on his sacrum. Patient admitted following up in clinic and rash has been worsening. Otherwise also concerned the patient was unable to care for himself and he is incontinent of stool and urine. Patient did not have any acute complaints. He was admitted for sepsis present on admission secondary to UTI. Urine cultures are positive for Proteus mirabilis. Patient was on Rocephin during his stay in the hospital. His by mouth home medications were continued. His sepsis started to improve slowly. Patient seems to be back to his baseline state at this time. He is being discharged to [facility]. Patient has been explained by this condition and plan of care. He understood and agreed. No other acute events or complications during his stay. No family members at the time of discharge. Patient is tolerating oral diet well. He is mostly wheelchair bound. He is at his baseline state and being discharged in a stable condition. He will be continuing his fluconazole and he is being prescribed Bactrim double strength. - Time Spent with Patient Total time spent providing and/or coordinating discharge services: Greater than 30 minutes - Constitutional Vitals: Temp Pulse Resp BP Pulse Ox 98.2 F 82 14 107/64 97 10/02/16 12:09 10/02/16 12:09 10/02/16 12:09 10/02/16 12:09 10/02/16 12:09 General appearance: Present: cachectic, A&O X 3, pleasant, no acute distress, answers questions appropriately - Head Head exam: Present: atraumatic - Eye Eye exam: Present: EOMI - ENT ENT exam: Present: mucous membranes moist - Neck Neck exam general surgery: Present: supple - Respiratory Respiratory exam: Present: CTAB. Absent: rales, rhonchi, wheezes, tachypnea - Cardiovascular Cardiovascular exam: Present: RRR, +S1, +S2 - GI/Abdominal GI/Abdominal exam: Present: soft, no peritoneal signs. Absent: distended, firm , guarding, rigid, tenderness - Extremities Exam Extremities exam: Present: radial pulses palpable and symetrical. Absent: cyanotic, pedal edema, tenderness Additional comments: right AKA - Neurological Exam Neurological exam: Present: alert, oriented X3, no focal deficits - VTE Documentation of Mechanical Device: Graduated compression elastic hosiery
--- NOTE | 2016-10-02 15:10 | Physician Discharge Referral ---
ExtendedCare Referral Info Provider in Charge after Transfer: PCP Institutional Level of Care: Skilled - Diagnosis (1) Sepsis Priority: Primary Status: Acute (2) UTI (urinary tract infection) Priority: Primary Status: Acute (3) Wound of skin Priority: Primary Status: Acute (4) Failure to thrive Priority: Secondary Status: Chronic - Transfer Medications Prescriptions: Sulfamethoxazole/Trimeth DS [Bactrim DS] 1 each PO BID 10 Days Home Medications: Aspirin [Lo-Dose Aspirin EC] 81 mg PO DAILY 09/06/16 [History] Baclofen 10 mg PO TID 09/06/16 [History] Clopidogrel [Plavix] 75 mg PO DAILY 09/06/16 [History] Docusate [Colace] 100 mg PO DAILY 09/06/16 [History] Gabapentin [Neurontin] 800 mg PO TID 09/06/16 [History] Metoprolol [Lopressor] 25 mg PO DAILY 09/06/16 [History] Mirtazapine 7.5 mg PO HS #30 tablet 09/06/16 [Rx] Mv-Mn/FA/Vit K/Lycop/Lut/Coq10 [Daily Multivitamin Capsule] 1 tab PO DAILY 09/06 [History] Oxycodone HCl/Acetaminophen [Percocet 5-325 mg Tablet] 1 tab PO Q4H PRN [History] Primidone [Mysoline] 100 mg PO Q8HR 09/06/16 [History] Simvastatin [Zocor] 20 mg PO HS 09/06/16 [History] traZODone [TraZODone] 50 mg PO HS 09/06/16 [History] Albuterol Sulfate [Ventolin Hfa] 2 puff IH Q6H PRN 09/27/16 [History] Cyanocobalamin (Vitamin B-12) [Vitamin B12] 1,000 mcg PO DAILY 09/27/16 [History ] Cyprohepatdine [Periactin] 4 mg PO TID 09/27/16 [History] Fluconazole [Diflucan] 100 mg PO DAILY 09/27/16 [History] Sulfamethoxazole/Trimeth DS [Bactrim DS] 1 each PO BID 10 Days 10/02/16 [Rx] Allergies/Adverse Reactions: Allergies No Known Allergies Allergy (Verified 09/27/16 11:25) - Respiratory Orders Smoking Cessation: Smoking cessation has been advised. For more information, call the [place] Tobacco Quit Line at 7-838-YSMW-NOW. - Lab Orders Lab Orders: CBC - Advance Directives Code Status: DNR-Comfort Care - Mobility Orders Other - Rehabiliation Orders Rehab Potential: Fair Rehab Orders: Evaluation for Physical Therapy, Evaluation for Occupational Therapy - Treatments Skin tear care topically daily PRN per policy - Diet Orders Regular CERTIFICATION: I certify that the transfer of the above named patient to an Extended Care Facility is necessary for the continuing treatment of the diagnosis listed. The above information is true and accurate reflection of patient's current condition. Confidential - Redisclosure prohibited without a patient's written consent.
[2016-10-02] MEDS ORDERED: Aminoglycoside Consult 1 EACH MC ONE (16:24)
== END 2016-10-02 16:25 | DRG 872 ==
LOC: 3NENU 11:14 → EMEROO 11:14 → 3NENU 15:29 → 3ANU 09-29 18:19
PROVIDERS: ADMIT Nurse Practitioner Family; ATTEND Internal Medicine

== ENCOUNTER 2016-10-19 11:04 | Inpatient (IN) ==
[2016-10-19] MEDS ORDERED: 0.9 % Sodium Chloride 1,000 ML IVC ONE (11:08)
--- NOTE | 2016-10-19 11:27 | Emergency Department Note ---
Disposition Clinical Impression: MAGNO (acute kidney injury), HCAP (healthcare-associated pneumonia) Altered mental status Qualifiers: Altered mental status type: unspecified Qualified Code(s): R41.82 - Altered mental status, unspecified Failure to thrive Qualifiers: Failure to thrive age range: in adult Qualified Code(s): R62.7 - Adult failure to thrive Constipation Qualifiers: Constipation type: unspecified constipation type Qualified Code(s): K59.00 - Constipation, unspecified Disposition: Admitted As Inpatient Condition: Fair Referrals: NONE,PCP [Primary Care Provider] - Forms: ED Satisfaction Letter Time of Disposition: 13:38 Altered Mental Status HPI - General Chief Complaint: ED Altered Mental Status Stated Complaint: Altered Mental Status Time Seen by Provider: 10/19/16 11:07 Source: EMS Mode of arrival: EMS Limitations: altered mental status Nursing Notes Reviewed: Yes Vital Signs Reviewed: Yes - History of Present Illness HPI Narrative: Patient presenting from nursing facility with altered mental status. According to EMS, since 8 PM last night. The patient has been essentially nonverbal when he is normally alert and oriented and fairly self-sufficient. Family saw him this morning and requested transfer. Upon my evaluation. Patient is sleepy but does awake to verbal stimuli. He follows commands. He is denying any pain currently. Otherwise he will not answer review of systems questions. Also of note, patient does have a recent discharge summary from the hospital on 09/27/16 for sepsis from UTI. - Related Data Home Medications Medication Instructions Recorded Confirmed Aspirin [Lo-Dose Aspirin EC] 81 mg PO DAILY 09/06/16 09/27/16 Baclofen 10 mg PO TID 09/06/16 09/27/16 Clopidogrel [Plavix] 75 mg PO DAILY 09/06/16 09/27/16 Docusate [Colace] 100 mg PO DAILY 09/06/16 09/27/16 Gabapentin [Neurontin] 800 mg PO TID 09/06/16 09/27/16 Metoprolol [Lopressor] 25 mg PO DAILY 09/06/16 09/27/16 Mv-Mn/FA/Vit K/Lycop/Lut/Coq10 1 tab PO DAILY 09/06/16 09/27/16 [Daily Multivitamin Capsule] Oxycodone HCl/Acetaminophen 1 tab PO Q4H PRN 09/06/16 09/27/16 [Percocet 5-325 mg Tablet] Primidone [Mysoline] 100 mg PO Q8HR 09/06/16 09/27/16 Simvastatin [Zocor] 20 mg PO HS 09/06/16 09/27/16 traZODone [TraZODone] 50 mg PO HS 09/06/16 09/27/16 Albuterol Sulfate [Ventolin Hfa] 2 puff IH Q6H PRN 09/27/16 09/27/16 Cyanocobalamin (Vitamin B-12) 1,000 mcg PO DAILY 09/27/16 09/27/16 [Vitamin B12] Cyprohepatdine [Periactin] 4 mg PO TID 09/27/16 09/27/16 Fluconazole [Diflucan] 100 mg PO DAILY 09/27/16 09/27/16 Previous Rx's Medication Instructions Recorded Mirtazapine 7.5 mg PO HS #30 tablet 09/06/16 Sulfamethoxazole/Trimeth DS 1 each PO BID 10 Days 10/02/16 [Bactrim DS] Allergies Allergy/AdvReac Type Severity Reaction Status Date / Time No Known Allergies Allergy Verified 09/27/16 11:25 Limitations: ROS unobtainable due to patients medical condition Past Medical History - Past Medical History Source: old records reviewed, obtained from family Medical history: Reports: coronary artery disease, hyperlipidemia, peripheral artery disease Surgical history: Reports: coronary bypass (CABG), other (right AKA) Psychiatric history: Reports: no psych history - Social History Smoking Status: Former smoker Smokeless Tobacco Status: No Alcohol use: Reports: none Drug use: Reports: none Physical Exam - General Limitations: altered mental status General appearance: in no apparent distress, lethargic - Head Head exam: atraumatic, normocephalic, normal inspection - Eye Eye exam: Present: normal appearance, PERRL, EOMI (Patient unable to follow commands, but is moving eyes and following), other (Bilateral cataracts) - ENT ENT exam: mucous membranes dry - Chest Chest inspection: Present: normal inspection, symmetric chest wall rise - Respiratory Respiratory exam: Present: other (Rhonchi right lower lobe). Absent: normal lung sounds bilaterally, respiratory distress - Cardiovascular Cardiovascular exam: Present: regular rate, normal rhythm - Abdominal Exam Abdominal exam: Present: soft, distention (Significant bladder distention), diminished bowel sounds - Extremities Exam Extremities exam: Present: normal inspection. Absent: pedal edema - Expanded Lower Extremity Exam Hip/Pelvis exam: Present: pelvis stable - Neurological Exam Neurological exam: Absent: oriented X3 (Not oriented to person, place or time, but is now alert, follows commands, but still will not answer anything more than simple questions) - Skin Skin exam: Present: warm, dry, intact, normal color Course Course Narrative: 81-year-old male presenting with altered mental status from the [facility]. His bladder significantly distended, bedside ultrasound shows approximately [address] [facility] get labs and admit. Patient also had pneumonia on chest x-ray. So we will go ahead and treat for HCAP - Reevaluation(s) Reevaluation #1: Labs are back, we will admit. Does also have renal insufficiency. Reevaluation #2: CT showed significant constipation, will give enema and admitted. Vital Signs Temperature 99.0 F 10/19/16 11:13 Pulse Rate 102 10/19/16 11:13 Respiratory Rate 15 10/19/16 11:13 Blood Pressure 138/81 10/19/16 11:13 O2 Sat by Pulse Oximetry 99 10/19/16 11:13 Temperature 99.0 F 10/19/16 11:13 Pulse Rate 81 10/19/16 13:21 Respiratory Rate 16 10/19/16 13:21 Blood Pressure 122/76 10/19/16 13:21 O2 Sat by Pulse Oximetry 99 10/19/16 13:21 Oxygen Delivery Oxygen Delivery Room Air Altered Mental Status - Medical Records Medical records reviewed: Yes I reviewed the patient's medical records. - Lab Data Lab results reviewed: Yes I reviewed the patient's lab results. Result diagrams: 10/19/16 13:15 10/19/16 12:19 Lab Results 10/19/16 10/19/16 10/19/16 Range/Units 11:40 11:40 12:19 WBC (4.3-11.1) K/mcL RBC (4.19-5.50) M/mcL Hgb (12.9-16.9) g/dL Hct (37.5-50.1) % MCV (83.0-100.0) fL MCH (28.0-33.3) pg MCHC (31.6-35.5) g/dL RDW (11.5-14.5) % Plt Count (140-400) K/mcL MPV (9.4-12.4) fL Immature Gran % (0-4) % Seg Neutrophils % % Lymphocytes % % Monocytes % % Eosinophils % % Basophils % % Neutrophils # (1.6-8.9) K/mcL Lymphocytes # (0.6-4.6) K/mcL Monocytes # (0.0-1.3) K/mcL Eosinophils # (0.0-0.6) K/mcL Basophils # (0.0-0.2) K/mcL Immature Plt Fraction (1.1-6.1) % PT 12.0 (9.4-12.1) Seconds INR 1.1 APTT 24.3 L (26.0-36.0) Seconds Sodium (136-145) mEq/L Potassium (3.5-4.5) mEq/L Chloride (98-109) mEq/L Carbon Dioxide (19-29) mEq/L BUN (8-26) mg/dL Creatinine (0.72-1.25) mg/dL Est GFR ( Amer) (> 60) Est GFR (Non-Af Amer) (> 60) BUN/Creatinine Ratio (6-26) Glucose (70-99) mg/dL Calculated Osmolality (280-300) Lactic Acid (0.5-2.2) mmol/L Calcium (8.6-10.8) mg/dL Total Bilirubin (0.2-1.2) mg/dL Direct Bilirubin (0.0-0.5) mg/dL Indirect Bilirubin (0.0-1.2) mg/dL AST (5-34) Units/L ALT (0-55) Units/L Alkaline Phosphatase (38-126) Units/L Ammonia (18-72) mcmol/L Creatine Kinase (30-200) Units/L Troponin I (0-0.03) ng/mL Serum Total Protein (6.0-8.3) g/dL Albumin (3.5-5.0) g/dL Globulin (2.4-3.5) g/dL Albumin/Globulin Ratio (1.1-2.2) TSH (0.350-4.840) mcIU/mL Urine Color Yellow (Yellow) Urine Clarity Clear (Clear) Urine pH 6.0 (5.0-8.0) pH Units Ur Specific [place] 1.014 (1.010-1.025) Urine Protein Negative (Neg-Trace) mg/dL Urine Glucose (UA) Normal (Normal) mg/dL Urine Ketones Negative (Negative) mg/dL Urine Blood Negative (Negative) Urine Nitrite Negative (Negative) Urine Bilirubin Negative (Negative) Urine Urobilinogen Normal (Normal) mg/dL Ur Leukocyte Esterase Negative (Negative) Ur Culture Indicated? NO (NO) Urine Opiates Screen Negative (Nncqge=064) ng/mL Ur Barbiturates Screen Positive H (Huyagq=653) ng/mL Ur Phencyclidine Scrn Negative (Cutoff=25) ng/mL Ur Amphetamines Screen Negative (Wkgdwm=7695) ng/mL U Benzodiazepines Scrn Negative (Cftzpk=714) ng/mL Urine Cocaine Screen Negative (Cutoff= 300) ng/mL U Marijuana (THC) Screen Negative (Cutoff = 50) ng/mL Specimen Rejected 10/19/16 10/19/16 10/19/16 Range/Units 12:19 12:19 12:19 WBC (4.3-11.1) K/mcL RBC (4.19-5.50) M/mcL Hgb (12.9-16.9) g/dL Hct (37.5-50.1) % MCV (83.0-100.0) fL MCH (28.0-33.3) pg MCHC (31.6-35.5) g/dL RDW (11.5-14.5) % Plt Count (140-400) K/mcL MPV (9.4-12.4) fL Immature Gran % (0-4) % Seg Neutrophils % % Lymphocytes % % Monocytes % % Eosinophils % % Basophils % % Neutrophils # (1.6-8.9) K/mcL Lymphocytes # (0.6-4.6) K/mcL Monocytes # (0.0-1.3) K/mcL Eosinophils # (0.0-0.6) K/mcL Basophils # (0.0-0.2) K/mcL Immature Plt Fraction (1.1-6.1) % PT (9.4-12.1) Seconds INR APTT (26.0-36.0) Seconds Sodium 142 (136-145) mEq/L Potassium 4.5 (3.5-4.5) mEq/L Chloride 105 (98-109) mEq/L Carbon Dioxide 26 (19-29) mEq/L BUN 42 H (8-26) mg/dL Creatinine 1.83 H (0.72-1.25) mg/dL Est GFR ( Amer) 43 L (> 60) Est GFR (Non-Af Amer) 36 L (> 60) BUN/Creatinine Ratio 23 (6-26) Glucose 87 (70-99) mg/dL Calculated Osmolality 304 H (280-300) Lactic Acid (0.5-2.2) mmol/L Calcium 9.1 (8.6-10.8) mg/dL Total Bilirubin 0.4 (0.2-1.2) mg/dL Direct Bilirubin 0.2 (0.0-0.5) mg/dL Indirect Bilirubin 0.2 (0.0-1.2) mg/dL AST 25 (5-34) Units/L ALT 19 (0-55) Units/L Alkaline Phosphatase 83 (38-126) Units/L Ammonia 27 (18-72) mcmol/L Creatine Kinase 119 (30-200) Units/L Troponin I 0.01 (0-0.03) ng/mL Serum Total Protein 7.3 (6.0-8.3) g/dL Albumin 3.3 L (3.5-5.0) g/dL Globulin 4.0 H (2.4-3.5) g/dL Albumin/Globulin Ratio 0.8 L (1.1-2.2) TSH 0.311 L (0.350-4.840) mcIU/mL Urine Color (Yellow) Urine Clarity (Clear) Urine pH (5.0-8.0) pH Units Ur Specific [place] (1.010-1.025) Urine Protein (Neg-Trace) mg/dL Urine Glucose (UA) (Normal) mg/dL Urine Ketones (Negative) mg/dL Urine Blood (Negative) Urine Nitrite (Negative) Urine Bilirubin (Negative) Urine Urobilinogen (Normal) mg/dL Ur Leukocyte Esterase (Negative) Ur Culture Indicated? (NO) Urine Opiates Screen (Oftvxa=820) ng/mL Ur Barbiturates Screen (Vbhjsj=753) ng/mL Ur Phencyclidine Scrn (Cutoff=25) ng/mL Ur Amphetamines Screen (Vfwfwd=9947) ng/mL U Benzodiazepines Scrn (Yffqqk=830) ng/mL Urine Cocaine Screen (Cutoff= 300) ng/mL U Marijuana (THC) Screen (Cutoff = 50) ng/mL Specimen Rejected 10/19/16 10/19/16 10/19/16 Range/Units 12:45 13:15 13:15 WBC 9.4 (4.3-11.1) K/mcL RBC 4.14 L (4.19-5.50) M/mcL Hgb 9.9 L (12.9-16.9) g/dL Hct 33.7 L (37.5-50.1) % MCV 81.4 L (83.0-100.0) fL MCH 23.9 L (28.0-33.3) pg MCHC 29.4 L (31.6-35.5) g/dL RDW 14.8 H (11.5-14.5) % Plt Count 108 L (140-400) K/mcL MPV 12.3 (9.4-12.4) fL Immature Gran % 0.2 (0-4) % Seg Neutrophils % 72.8 % Lymphocytes % 12.6 % Monocytes % 9.7 % Eosinophils % 4.2 % Basophils % 0.5 % Neutrophils # 6.9 (1.6-8.9) K/mcL Lymphocytes # 1.2 (0.6-4.6) K/mcL Monocytes # 0.9 (0.0-1.3) K/mcL Eosinophils # 0.4 (0.0-0.6) K/mcL Basophils # 0.1 (0.0-0.2) K/mcL Immature Plt Fraction 9.3 H (1.1-6.1) % PT (9.4-12.1) Seconds INR APTT (26.0-36.0) Seconds Sodium (136-145) mEq/L Potassium (3.5-4.5) mEq/L Chloride (98-109) mEq/L Carbon Dioxide (19-29) mEq/L BUN (8-26) mg/dL Creatinine (0.72-1.25) mg/dL Est GFR ( Amer) (> 60) Est GFR (Non-Af Amer) (> 60) BUN/Creatinine Ratio (6-26) Glucose (70-99) mg/dL Calculated Osmolality (280-300) Lactic Acid 1.4 (0.5-2.2) mmol/L Calcium (8.6-10.8) mg/dL Total Bilirubin (0.2-1.2) mg/dL Direct Bilirubin (0.0-0.5) mg/dL Indirect Bilirubin (0.0-1.2) mg/dL AST (5-34) Units/L ALT (0-55) Units/L Alkaline Phosphatase (38-126) Units/L Ammonia (18-72) mcmol/L Creatine Kinase (30-200) Units/L Troponin I (0-0.03) ng/mL Serum Total Protein (6.0-8.3) g/dL Albumin (3.5-5.0) g/dL Globulin (2.4-3.5) g/dL Albumin/Globulin Ratio (1.1-2.2) TSH (0.350-4.840) mcIU/mL Urine Color (Yellow) Urine Clarity (Clear) Urine pH (5.0-8.0) pH Units Ur Specific [place] (1.010-1.025) Urine Protein (Neg-Trace) mg/dL Urine Glucose (UA) (Normal) mg/dL Urine Ketones (Negative) mg/dL Urine Blood (Negative) Urine Nitrite (Negative) Urine Bilirubin (Negative) Urine Urobilinogen (Normal) mg/dL Ur Leukocyte Esterase (Negative) Ur Culture Indicated? (NO) Urine Opiates Screen (Cciafv=874) ng/mL Ur Barbiturates Screen (Pciuba=673) ng/mL Ur Phencyclidine Scrn (Cutoff=25) ng/mL Ur Amphetamines Screen (Fidgqt=1862) ng/mL U Benzodiazepines Scrn (Vfsdxb=531) ng/mL Urine Cocaine Screen (Cutoff= 300) ng/mL U Marijuana (THC) Screen (Cutoff = 50) ng/mL Specimen Rejected Clotted - Radiology Data Radiology results reviewed: Yes I reviewed the patient's radiology results. - EKG Data EKG attestation: Yes I reviewed and interpreted this EKG. EKG results narrative: Sinus rhythm, rate 98, NH interval 153, QRS 81, QTC 377, left axis deviation, nonspecific T-wave changes, no acute ischemic changes TPA Checklist - LKW: 3-4.5 hrs Add. Warnings/Precautions Patient/family understanding: The patient/family members have been counseled and understood the risk, benefit , and alternatives of treatment. Marga - Marga Situation: Demographics, MOA Background: Presenting Complaint, Relevant PMH, Meds, & Allergies Assessment: Vital Signs, Course and respsone to treatment, Exam Concerns, Patient/Family Expectation, Pertinant Lab Results, Outstanding Labs Recommendation: Barrier(s) to disposition, Recommendation based on pending studies, treatments, or consults S.Ara Report Given to: Dr. Jack Gresham Repor Time: 13:51
[2016-10-19] MEDS ORDERED: Piperacillin/Tazobactam 4.5 GM in D5% in Water (Mini-Bag+) 100 ML IVPB ONE (11:29)
[2016-10-19] MEDS ORDERED: Vancomycin 1,000 MG in D5% in Water 250 ML IVPB ONE (11:29)
[2016-10-19] MEDS ORDERED: Levofloxacin 750 MG/150 ML 750 MG/150 ML BAG IVPB ONE (11:29)
--- NOTE | 2016-10-19 12:02 | Emergency Department Note ---
START Narrative - START START: I examined this patient and my medical decision-making was reviewed with the Resident Physician. I agree with the documented findings, disposition and treatment plan as described except to the extent set forth below. 81-year-old male presents for altered mental status. Patient will need to be worked up from an infectious standpoint. Patient also was found to have significant urinary retention. We have gotten over 1100 mL of urine from his bladder. This is most likely the cause of his abdominal pain as well as his back pain. Etiology of that could be secondary to significant constipation versus medication induced versus immobility versus prostate problems.
[2016-10-19 12:03] LABS: Bilirubin,Urine Negative (Negative); Blood,Urine Negative (Negative); Clarity,Urine Clear (Clear); Color,Urine Yellow (Yellow); Glucose,Urine (UA) Normal (Normal); Ketones,Urine Negative (Negative); Leukocyte Esterase,Urine Negative (Negative); Nitrite,Urine Negative (Negative); Protein,Urine Negative (Neg-Trace); Specific Gravity,Urine 1.014 (1.010-1.025); Urobilinogen,Urine Normal (Normal)
[2016-10-19 12:10] LABS: Amphetamine Screen,Urine Negative ng/mL (Cutoff=1000); Barbiturate Screen,Urine Positive ng/mL (Cutoff=200); Benzodiazepines Screen,Urine Negative ng/mL (Cutoff=200); Cannabinoid Screen,Urine Negative ng/mL (Cutoff = 50); Cocaine Screen,Urine Negative ng/mL (Cutoff= 300); Opiate Screen,Urine Negative ng/mL (Cutoff=300); Phencyclidine Screen,Urine Negative ng/mL (Cutoff=25)
[2016-10-19 12:31] LABS: INR 1.1
[2016-10-19 12:34] LABS: Activated Partial Thrombo Time 24.3 Seconds (26.0-36.0)
[2016-10-19] MEDS ORDERED: Milk and Molasses Enema 200 ML RC ONE (12:46)
[2016-10-19 12:50] LABS: Albumin 3.3 g/dL (3.5-5.0); Albumin/Globulin Ratio 0.8 (1.1-2.2); Bilirubin,Direct 0.2 mg/dL (0.0-0.5); Bilirubin,Indirect 0.2 mg/dL (0.0-1.2); Bilirubin,Total 0.4 mg/dL (0.2-1.2); Calcium 9.1 mg/dL (8.6-10.8); Potassium 4.5 mEq/L (3.5-4.5); Total Protein 7.3 g/dL (6.0-8.3)
[2016-10-19 13:09] LABS: Thyroid Stimulating Hormone 0.311 mcIU/mL (0.350-4.840)
[2016-10-19 13:25] LABS: Basophils # 0.1 K/mcL (0.0-0.2); Basophils % 0.5 %; Eosinophils # 0.4 K/mcL (0.0-0.6); Eosinophils % 4.2 %; Hematocrit 33.7 % (37.5-50.1); Hemoglobin 9.9 g/dL (12.9-16.9); Immature Granulocytes % 0.2 % (0-4); Immature Platelets 9.3 % (1.1-6.1); Lymphocytes # 1.2 K/mcL (0.6-4.6); Lymphocytes % 12.6 %; Mean Corpuscular HGB Conc 29.4 g/dL (31.6-35.5); Mean Corpuscular Hemoglobin 23.9 pg (28.0-33.3); Mean Corpuscular Volume 81.4 fL (83.0-100.0); Mean Platelet Volume 12.3 fL (9.4-12.4); Monocytes # 0.9 K/mcL (0.0-1.3); Monocytes % 9.7 %; Neutrophils # 6.9 K/mcL (1.6-8.9); Platelet Count 108 K/mcL (140-400); Red Blood Count 4.14 M/mcL (4.19-5.50); Red Cell Distribution Width 14.8 % (11.5-14.5); Segmented Neutrophils % 72.8 %
[2016-10-19] MEDS ORDERED: Ondansetron 4 MG/2 ML VIAL IVP PRN (16:27)
[2016-10-19] MEDS ORDERED: *HR* Morphine 2 MG/ML SYRINGE IVP PRN (16:27)
[2016-10-19] MEDS ORDERED: Naloxone 0.4 MG/ML INJ IVP PRN (16:27)
[2016-10-19] MEDS ORDERED: MOM Conc 10 ML UD.LIQ PO PRN (16:27)
[2016-10-19] MEDS ORDERED: Dextrose Gel 15 GM PO PRN ×2 (17:02)
[2016-10-19] MEDS ORDERED: *HR* Dextrose 50 % in Water (Syg) 50 ML SYRINGE IVP PRN (17:02)
[2016-10-19] MEDS: Pantoprazole 40 MG VIAL IVP SCH (18:15)
[2016-10-19] MEDS: 0.9 % Sodium Chloride 1,000 ML IVC SCH (18:15)
--- NOTE | 2016-10-19 19:01 | Event Note ---
Date of Encounter: 10/19/16 Time of Encounter: 17:00 I saw and examined pt. I have discussed with TEACHER [employer]AMA Mr Pa regarding management plan. Pt came with AMS. Mental status improved now. Pt has cough, CXR show bibasal atelectasis. Will consider HCAP and treat pt with Abx. CT abd shows urinary retention, no hydronephrosis. However, pt has MAGNO with Cr level higher than baseline. [facility] placed. Will give pt hydration and f/u renal function.
--- NOTE | 2016-10-19 19:21 | Internal Med History&Physical ---
Date of Encounter: 10/19/16 Time of Encounter: 14:00 Assessment and Plan (1) Altered mental status Current visit: Yes Status: Acute Patient presents with acute delirium and AMS with family reporting it beginning last evening at 8 p.m. Patient was non-verbal, somnolent, and was slow to/did not respond to verbal stimuli. Patient does not answer questions appropriately when he does speak. Patient was treated on 09/27/16 for sepsis from UTI and currently is showing symptoms to unresolved UTI. IV zosyn, levaquin, and vancomycin ordered in ED and will be continued. Palliative, director of social media marketing, nutrition, and speech consults ordered due to current health status, need for dysphagia screening, and failure to thrive. Patient placed as falls precautions/ up with assist/bed rest due to current AMS and weakness. Patient to be monitored closely. Qualifiers: Altered mental status type: delirium Qualified Code(s): R41.0 - Disorientation, unspecified (2) UTI (urinary tract infection) Current visit: Yes Status: Acute Patient presents with symptoms of unresolved UTI based on current AMS symptoms and history of sepsis from UTI on 09/27/16. IV Zosyn, levaquin, and vancomycin ordered in the ED and will be continued with IV levaquin 750 mg Q48 with next dose on 10/21 at 11:00, IV Zosyn 3.375 gm Q8, and IV vancomycin with pharmacy dosing. Follow-up labs ordered. Will monitor patient for signs of increasing infection and/or resolving AMS. Patient does not currently meet SIRS criteria based on WBCs of 9.4, temperature of 99.0F, RR of 16, HR of 81, and BP of 122/ 76. Will monitor patient closely due to history of previous sepsis. Blood cultures ordered x2. Qualifiers: Urinary tract infection type: acute cystitis Hematuria presence: with hematuria Qualified Code(s): N30.01 - Acute cystitis with hematuria (3) Acute urinary retention Current visit: Yes Status: Acute Patient presents with acute urinary retention and distended abdomen. Patient is currently altered and somnolent. Oshea catheter placed with 1100 of urine taken off, followed by another 400. Will monitor I&O and gently hydrate patient with 75 mL/HR. (4) Constipation Current visit: Yes Status: Acute Patient presents with acute on chronic constipation. CT of the abdomen and pelvis without contrast today shows large stool burden, worst in the rectum. Findings likely due to chronic constipation. Milk and molasses enema ordered in the ED. Milk of magnesia ordered daily. Will monitor I&O. Qualifiers: Constipation type: unspecified constipation type Qualified Code(s): K59.00 - Constipation, unspecified (5) HLD (hyperlipidemia) Current visit: Yes Status: Chronic Patient presents with history of chronic hyperlipidemia. Lipid panel ordered. Will continue patient's Zocor. Qualifiers: Hyperlipidemia type: pure hypercholesterolemia Qualified Code(s): E78.00 - Pure hypercholesterolemia, unspecified; E78.0 - Pure hypercholesterolemia (6) Failure to thrive Current visit: Yes Status: Chronic Patient presents with chronic failure to thrive symptoms based on his inability to clean himself after urine and fecal incontinence. Patient also appears as though he is malnourished. Consult orders placed for wound care, speech (for dysphagia screening), director of social media marketing due to failure to thrive, and palliative care based on current health status. 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 Patient was treated previously for this on 09/27/16. Patient has difficulty cleaning himself from incontinence of urine and fecal matter which most likely contributes to this chronic condition. Wound care consult ordered as well as daily wound care. (8) DVT prophylaxis Current visit: Yes Status: Acute Patient to be placed on DVT prophylaxis due to current admission protocol and bed rest status. Heparin 5,000 units SQ Q12 ordered. Internal Medicine - H&P: HPI Chief complaint: Altered Mental Status Admitted From: Emergency Dept Plans for Post Hospital Care: Home History of present illness: Mr. Bartlett is a 81 year old male who presents from the ED with altered mental status over the past 24 hours. Patient's family reports that the patient is normally alert and able to feed himself, however when family saw him this morning at the SNF they requested transfer to the ED. Patient is somnolent and unable to answer questions posed to him so review of systems unable to be completed. Patient was recently discharged from the hospital on 09/27/16 for sepsis from a UTI. Upon examination, patient's abdomen was distended. Oshea catheter was inserted and 1100 was taken off, followed by another 400. Patient' s medical history includes coronary artery disease, hyperlipidemia, and peripheral artery disease. Patient has a history of CABG and chronic kidney disease based on previous medical records. Based on patient's current AMS, diagnosis is unresolved UTI. CT the abdomen and pelvis today without contrast shows large stool burden worse in the rectum, likely due to chronic constipation , cholelithiasis, and small right pleural effusion. CT of the head today without contrast shows no acute intracranial abnormality and mild atrophic changes and mild periventricular white matter small vessel ischemic disease. 1- View CXR today shows post-CABG changes. Heart is not enlarged. Pulmonary vasculature normal. No consolidation, significant pleural effusion, or visible pneumothorax. Bibasilar atelectasis. Mr. Bartlett does not currently meet SIRS criteria based on WBCs of 9.4, temperature 99.0 F, pulse rate of 102, respiratory rate 15, blood pressure 138/81. IV vancomycin, Levaquin, and Zosyn administered in the ED and will be continued with IV vancomycin pharmacy dosed, Levaquin 750 every 48 beginning October 21 11:00, and IV Zosyn 3.375 daily Q8. Blood and urine cultures ordered. Patient to be placed on continuous cardiac telemetry, supplemental O2 and SpO2 monitoring, and falls/safety precautions when mentation improves. Mr. Bartlett to be monitored for signs of increasing infection and/or cardiac and respiratory distress. Time spent examining patient >30 minutes. Past Med Surg Social Fam HX - Past Medical History Source: old records reviewed Medical history: coronary artery disease, hyperlipidemia, peripheral artery disease Psychiatric history: no psych history - Past Surgical History Surgical History: coronary bypass (CABG), other (right AKA) - Social History Smoking Status: Former smoker Smokeless Tobacco Status: No Alcohol use: none Drug use: none Current living situation: Assisted Living Recent Out of Country Travel Within the Last 8 Weeks: No Exposure or Possible Exposure to Illness During Travel: No - Family History Mother Living Status: Hx Family Cardiac Disorders: No Hx Family Respiratory Disorders: No Hx Family Cancer: No Hx Family GI Disorders: Yes Hx Family Endocrine Disorder: No Hx Family Neuromuscular Disorders: No Hx Family Neurologic Disorders: No Hx Family HEENT Disorders: No Hx Family Autoimmune Disorders: No Father Family Member Ethnicity: Unknown Living Status: Hx Family Cardiac Disorders: Yes Hx Family Respiratory Disorders: No Hx Family Cancer: No Hx Family GI Disorders: No Hx Family Endocrine Disorder: No Hx Family Neuromuscular Disorders: No Hx Family Neurologic Disorders: No Hx Family HEENT Disorders: No Hx Family Autoimmune Disorders: No Internal Medicine - H&P: Meds Aspirin [Lo-Dose Aspirin EC] 81 mg PO DAILY 09/06/16 [History] Baclofen 10 mg PO TID 09/06/16 [History] Clopidogrel [Plavix] 75 mg PO DAILY 09/06/16 [History] Docusate [Colace] 100 mg PO DAILY 09/06/16 [History] Gabapentin [Neurontin] 800 mg PO TID 09/06/16 [History] Metoprolol [Lopressor] 25 mg PO DAILY 09/06/16 [History] Mirtazapine 7.5 mg PO HS #30 tablet 09/06/16 [Rx] Mv-Mn/FA/Vit K/Lycop/Lut/Coq10 [Daily Multivitamin Capsule] 1 tab PO DAILY 09/06 [History] Oxycodone HCl/Acetaminophen [Percocet 5-325 mg Tablet] 1 tab PO Q4H PRN [History] Primidone [Mysoline] 100 mg PO Q8HR 09/06/16 [History] Simvastatin [Zocor] 20 mg PO HS 09/06/16 [History] traZODone [TraZODone] 50 mg PO HS 09/06/16 [History] Albuterol Sulfate [Ventolin Hfa] 2 puff IH Q6H PRN 09/27/16 [History] Cyanocobalamin (Vitamin B-12) [Vitamin B12] 1,000 mcg PO DAILY 09/27/16 [History ] Cyprohepatdine [Periactin] 4 mg PO TID 09/27/16 [History] Fluconazole [Diflucan] 100 mg PO DAILY 09/27/16 [History] Amino Acids/Protein Hydrolys [Pre Protein 20 Liquid] 30 ml PO DAILY 10/19/16 [ History] 3 Allergy/AdvReac Type Severity Reaction Status Date / Time No Known Allergies Allergy Verified 09/27/16 11:25 ROS unobtainable: due to mental status All Systems PM: A 10-system review of systems was performed and is negative for pertinent findings except as documented above in the HPI. - Constitutional Vitals: Temp Pulse Resp BP Pulse Ox 98.4 F 81 18 122/71 98 10/19/16 17:53 10/19/16 17:53 10/19/16 17:53 10/19/16 17:53 10/19/16 17:53 General appearance: Present: A&O X 0 - Head Head exam: Present: atraumatic, normocephalic - Eye Eye exam: Present: PERRL, conjuntiva pink, sclera anicteric Pupils: Present: PERRL - ENT ENT exam: Present: normal exam, normal external ear exam - Neck Neck exam general surgery: Present: normal inspection, supple, trachea midline. Absent: lymphadenopathy - Respiratory Respiratory exam: Present: CTAB. Absent: accessory muscle use, rales, rhonchi, wheezes - Cardiovascular Cardiovascular exam: Present: RRR, +S1, +S2. Absent: diastolic murmur, gallop, rubs, systolic murmur - GI/Abdominal GI/Abdominal exam: Present: normal bowel sounds, soft, no peritoneal signs. Absent: distended, tenderness - Rectal Rectal exam: Present: deferred - Additional comments: exam deferred. - Extremities Exam Extremities exam: Present: normal inspection, warm. Absent: calf tenderness, cyanotic, pedal edema Additional comments: Patient has left cyaoa-glw-jevy amputation. - Back Exam Additional comments: Patient has previous skin breakdown that has continued with some open and seeping areas. Patient previously diagnosed with candidiasis on his back. - Neurological Exam Neurological exam: Present: altered - Skin Skin exam: Present: excoriation, vesicles (Back) Internal Med - H&P Results - Labs CBC & Chem 7: 10/19/16 13:15 10/19/16 12:19 - EKG Data EKG shows normal: sinus rhythm - EKG Data Prior EKG available for review: no EKG comments: 10/19/16 19:28 EKG dated 10/19/16 shows sinus rhythm with marked left axis deviation, pattern consistent with pulmonary disease. Nonspecific T-wave abnormality and abnormal ECG.
[2016-10-19] MEDS: Insulin LISPRO 300 UNITS/3 ML VIAL SQ SCH (23:05)
[2016-10-19] MEDS: Gabapentin 400 MG CAPSULE PO SCH (23:16)
[2016-10-19] MEDS: Mirtazapine 15 MG TABLET PO SCH (23:16)
[2016-10-19] MEDS: traZODone 50 MG TABLET PO SCH (23:16)
[2016-10-19] MEDS: Cyprohepatdine 4 MG TABLET PO SCH (23:16)
[2016-10-19] MEDS: Primidone 50 MG TABLET PO SCH (23:30)
[2016-10-19] MEDS: Piperacillin/Tazobactam 3.375 GM in D5% in Water (Mini-Bag+) 100 ML IVPB SCH (23:30)
[2016-10-20 01:53] LABS: Basophils % 0.7 %; Immature Granulocytes % 0.3 % (0-4); Red Cell Distribution Width 14.8 % (11.5-14.5)
[2016-10-20 01:55] LABS: Basophils # 0.1 K/mcL (0.0-0.2); Eosinophils # 0.6 K/mcL (0.0-0.6); Eosinophils % 8.1 %; Hematocrit 33.4 % (37.5-50.1); Hemoglobin 9.9 g/dL (12.9-16.9); INR 1.2; Lymphocytes # 1.3 K/mcL (0.6-4.6); Lymphocytes % 17.1 %; Mean Corpuscular HGB Conc 29.6 g/dL (31.6-35.5); Mean Corpuscular Hemoglobin 24.6 pg (28.0-33.3); Mean Corpuscular Volume 82.9 fL (83.0-100.0); Mean Platelet Volume 12.6 fL (9.4-12.4); Monocytes # 0.6 K/mcL (0.0-1.3); Monocytes % 8.3 %; Neutrophils # 4.9 K/mcL (1.6-8.9); Platelet Count 118 K/mcL (140-400); Prothrombin Time 13.3 Seconds (9.4-12.1); Red Blood Count 4.03 M/mcL (4.19-5.50); Segmented Neutrophils % 65.5 %
[2016-10-20 01:58] LABS: Activated Partial Thrombo Time 30.4 Seconds (26.0-36.0)
[2016-10-20 02:12] LABS: BUN/Creatinine Ratio 24 (6-26); Calcium 8.4 mg/dL (8.6-10.8); Carbon Dioxide 26 mEq/L (19-29); Chloride 108 mEq/L (98-109); Chol/HDL Ratio 4.2 (0-4.9); Cholesterol 139 mg/dL (< 200); Glucose 65 mg/dL (70-99); HDL Cholesterol 33 mg/dL (40-59); LDL Cholesterol,Calculated 82 mg/dL (0-99); Magnesium 2.3 mg/dL (1.6-2.6); Osmolality,Calculated 300 (280-300); Sodium 143 mEq/L (136-145); Triglycerides 121 mg/dL (< 150); eGFR For African Americans > 60 (> 60); eGFR For Non-African Americans 56 (> 60)
[2016-10-20 02:14] LABS: Platelet Estimate Slight Decrease (Normal); Reactive Lymphocytes Present (Not Present)
[2016-10-20 02:15] LABS: Blood Urea Nitrogen 29 mg/dL (8-26)
[2016-10-20] MEDS: *HR* Heparin 5,000 UNIT/ML VIAL SQ SCH ×2 (05:42→16:39)
[2016-10-20] MEDS: Piperacillin/Tazobactam 3.375 GM in D5% in Water (Mini-Bag+) 100 ML IVPB SCH ×3 (08:23→23:29)
[2016-10-20] MEDS: Pantoprazole 40 MG VIAL IVP SCH (08:23)
[2016-10-20] MEDS: 0.9 % Sodium Chloride 1,000 ML IVC SCH ×2 (08:33→23:30)
[2016-10-20] MEDS: D5% in Water 1,000 ML IVC PRN (09:01)
--- NOTE | 2016-10-20 09:17 | Palliative - Consult Note ---
Date of Encounter: 10/20/16 Time of Encounter: 09:15 - Assessment and Plan (1) Constipation Current Visit: Yes Status: Acute Assessment and plan: Patient CT scan revealed large stool burden. Patient given enemas in ER and has had BM's. Attends on and patient incontinent of stool. Bowel regimen with MOM PRN. Will add daily senna and softner. Qualifiers: Constipation type: unspecified constipation type Qualified Code(s): K59.00 - Constipation, unspecified (2) Skin excoriation Current Visit: Yes Status: Chronic Assessment and plan: Patient with history of upper and lower back wounds. Patient has been followed as outpatient in wound clinic. Wound consult pending. Turn every 2 hrs, apply Allevyn for support and prevention. (3) Phantom limb pain Current Visit: Yes Status: Acute Assessment and plan: Patient with past Rt AKA. Reports phantom pain to right stump. Currently taking Baclofen TID and Gabapentin TID. Reports relieve. Patient with Morphine PRN. (4) Goals of care, counseling/discussion Current Visit: Yes Status: Acute Assessment and plan: Attempted to call the son Kayden #[phone]. Left message to return call to discuss patient POC and gaols for treatment. Patient is DNRCC - Arrest at present. Patient resides at [facility] and patient reports that he is unable to care for himself d/t his inability to ambulate from his Rt. AKA. Patient agrees to discuss GOC with and son. Patient currently receiving conservative treatment with antibiotics for Pneumonia. Patient agrees to return to [facility] [place]. (5) UTI (urinary tract infection) Current Visit: Yes Status: Acute Qualifiers: Urinary tract infection type: acute cystitis Hematuria presence: with hematuria Qualified Code(s): N30.01 - Acute cystitis with hematuria (6) HCAP (healthcare-associated pneumonia) Current Visit: Yes Status: Acute Palliative-CN HPI - Data of Consult Patient: new to practice Consult date: 10/20/16 Requesting Physician: Aidan Pa Primary Care Provider: PCP NONE - Consult Narrative Palliative Care/Comfort Measures: Palliative care Reason for consult: Goals of Care History of present illness: Mr. Bartlett is a 81 year old male admitted from [facility] with altered mental status, HCAP, UTI, urinary retention. Complete chart review of history, labs and diagnostics. Upon this consult, the patient is awake and able to answer a few questions related to his health history. He denies pain. PMH PAD, Right AKA , wounds, and CAD - S/P CABG. This palliative care consult is for goals of care discussion. There is no family at bedside. CC: Marco Lozada MD Past Med Surg Social Fam HX - Past Medical History Medical history: coronary artery disease, hyperlipidemia, peripheral artery disease Psychiatric history: no psych history - Past Surgical History Surgical History: coronary bypass (CABG), other (right AKA) - Social History Smoking Status: Former smoker Smokeless Tobacco Status: No Alcohol use: none Drug use: none - Family History Mother Living Status: Hx Family Cardiac Disorders: No Hx Family Respiratory Disorders: No Hx Family Cancer: No Hx Family GI Disorders: Yes Hx Family Endocrine Disorder: No Hx Family Neuromuscular Disorders: No Hx Family Neurologic Disorders: No Hx Family HEENT Disorders: No Hx Family Autoimmune Disorders: No Father Family Member Ethnicity: Unknown Living Status: Hx Family Cardiac Disorders: Yes Hx Family Respiratory Disorders: No Hx Family Cancer: No Hx Family GI Disorders: No Hx Family Endocrine Disorder: No Hx Family Neuromuscular Disorders: No Hx Family Neurologic Disorders: No Hx Family HEENT Disorders: No Hx Family Autoimmune Disorders: No Medications and Allergies Aspirin [Lo-Dose Aspirin EC] 81 mg PO DAILY 09/06/16 [History] Baclofen 10 mg PO TID 09/06/16 [History] Clopidogrel [Plavix] 75 mg PO DAILY 09/06/16 [History] Docusate [Colace] 100 mg PO DAILY 09/06/16 [History] Gabapentin [Neurontin] 800 mg PO TID 09/06/16 [History] Metoprolol [Lopressor] 25 mg PO DAILY 09/06/16 [History] Mirtazapine 7.5 mg PO HS #30 tablet 09/06/16 [Rx] Mv-Mn/FA/Vit K/Lycop/Lut/Coq10 [Daily Multivitamin Capsule] 1 tab PO DAILY 09/06 [History] Oxycodone HCl/Acetaminophen [Percocet 5-325 mg Tablet] 1 tab PO Q4H PRN [History] Primidone [Mysoline] 100 mg PO Q8HR 09/06/16 [History] Simvastatin [Zocor] 20 mg PO HS 09/06/16 [History] traZODone [TraZODone] 50 mg PO HS 09/06/16 [History] Albuterol Sulfate [Ventolin Hfa] 2 puff IH Q6H PRN 09/27/16 [History] Cyanocobalamin (Vitamin B-12) [Vitamin B12] 1,000 mcg PO DAILY 09/27/16 [History ] Cyprohepatdine [Periactin] 4 mg PO TID 09/27/16 [History] Fluconazole [Diflucan] 100 mg PO DAILY 09/27/16 [History] Amino Acids/Protein Hydrolys [Pre Protein 20 Liquid] 30 ml PO DAILY 10/19/16 [ History] 3 Allergy/AdvReac Type Severity Reaction Status Date / Time No Known Allergies Allergy Verified 09/27/16 11:25 All systems: reviewed and no additional remarkable complaints except as stated ( lower back wounds, constipation and weakness) - Constitutional Constitutional ROS PAL: fatigue - Cardiovascular Cardiovascular ROS: as per HPI - Respiratory Respiratory: cough - Gastrointestinal Gastrointestinal: constipation - Genitourinary Genitourinary ROS male: urinary hesitancy - Musculoskeletal Musculoskeletal ROS IM: muscle weakness - Integumentary ROS Integumentary: skin ulcer (posterior back) - Neurological Neurological ROS: weakness Palliative Care-Exam - Constitutional Vitals: Temp Pulse Resp BP Pulse Ox 98.7 F 94 16 100/51 97 10/20/16 06:44 10/20/16 06:44 10/20/16 06:44 10/20/16 06:44 10/20/16 06:44 General appearance: Present: febrile, cooperative, no acute distress - Head Head Exam: Present: atraumatic, normal inspection, normocephalic - Eye Eye exam: Present: PERRL - ENT ENT exam: Present: mucous membranes moist - Respiratory Respiratory exam: Present: decreased breath sounds - Expanded Respiratory Exam Location: decreased breath sounds: Left, Right, Lower - Cardiovascular Cardiovascular exam: Present: RRR, +S1, +S2 - Expanded Cardiovascular Exam Peripheral pulses: 0: Posterior Tibialis (R), Dorsalis Pedis (R) PM (AKA), 1+: Femoral (L) PM, Femoral (R) PM, Posterior Tibialis (L), Dorsalis Pedis (L) PM, 2 +: Carotid (L) PM, Carotid (R) PM, Radial (L), Radial (R) - GI/Abdominal Exam GI/Abdominal exam: Present: normal bowel sounds, soft - Rectal Rectal Exam: Present: deferred - Catheter Type: Urethral (Oshea) Additional comments: Dark yellow urine - Extremities Exam Extremities exam: Present: tenderness Additional comments: Right AKA - Expanded Upper Extremities Exam Forearm wrist exam: Present: full ROM - Neurological Exam Neurological exam: Present: alert (oriented to place) - Psychiatric Psychiatric exam: Present: flat affect - Skin Skin exam: Present: warm (posterior back wounds with Allevyn. ) Internal Medicine - CN: Reslt - Labs CBC & Chem 7: 10/20/16 00:47 10/20/16 00:47 Labs: Short CBC 10/20/16 Range/Units 00:47 WBC 7.4 (4.3-11.1) K/mcL Hgb 9.9 L (12.9-16.9) g/dL Hct 33.4 L (37.5-50.1) % Plt Count 118 L (140-400) K/mcL Neutrophils # 4.9 (1.6-8.9) K/mcL BMP 10/20/16 00:47 Sodium 143 Potassium 4.0 Chloride 108 Carbon Dioxide 26 BUN 29 H D Creatinine 1.23 Glucose 65 L Calcium 8.4 L Cardiac Enzymes 10/19/16 10/20/16 Range/Units 18:41 00:47 Troponin I 0.01 0.00 (0-0.03) ng/mL - ABG Interpretation ABG results: PT/INR, D-dimer PT 13.3 Seconds (9.4-12.1) H 10/20/16 00:47 Consult Discharge Plan - Plan Referrals: NONE,PCP [Primary Care Provider] - Palliative Quality Palliative Quality: Screen for Code Status: Yes, Screen for Goals of Care: Yes, Screen for Pain: Yes, If Pain Regimen Started, Initiate Bowel Regimen: Yes, Screen for Nausea/Vomitting: Yes Code Status: 10/20/16 02:44 CODE [Resuscitation Status: Active] [RES] Routine Comment: Resuscitation Status: DNR-Comfort Care-Arrest
--- NOTE | 2016-10-20 09:47 | Internal Med Progress Note ---
<Fam Grossman - Last Filed: 10/20/16 11:08> Date of Encounter: 10/20/16 Time of Encounter: 09:45 - Assessment and plan (1) Failure to thrive Status: Chronic Assessment and plan: Patient presents with chronic failure to thrive symptoms based on his inability to clean himself after urine and fecal incontinence. Patient also appears as though he is malnourished. - Wound care, speech for dysphagia, social service consults pending - palliative care LVM for rashaun Monique [phone] to discuss patient's goals. Qualifiers: Failure to thrive age range: in adult Qualified Code(s): R62.7 - Adult failure to thrive (2) UTI (urinary tract infection) Status: Acute Assessment and plan: Patient presents with symptoms of unresolved UTI based on current AMS symptoms and history of sepsis from UTI on 09/27/16. IV Zosyn, levaquin, and vancomycin ordered in the ED and will be continued with IV levaquin 750 mg Q48 with next dose on 10/21 at 11:00, IV Zosyn 3.375 gm Q8, and IV vancomycin with pharmacy dosing. Will monitor patient for signs of increasing infection and/or resolving AMS. Patient does not currently meet SIRS criteria based on WBCs of 9.4, temperature of 99.0F, RR of 16, HR of 81, and BP of 122/76. - continue IV zosyn - D/C levaquin + vanco - blood cultures pending - continue to monitor closely, and evaluate SIRS criteria Qualifiers: Urinary tract infection type: acute cystitis Hematuria presence: with hematuria Qualified Code(s): N30.01 - Acute cystitis with hematuria (3) Altered mental status Status: Acute Assessment and plan: Patient started having delirium and AMS according to family starting the night of 10/18. He was non-verbal, somnolent, and not responding to verbal commands. Patient continues to not appropriately respond to questions. Pt treated for sepsis 09/27/16 2/2 UTI, and continues to have sx of unresolved UTI. IV zosyn, levaquin, and vanco were started in ED. - falls precautions/up with assist/bed rest due to current AMS and weakness. - Patient to be monitored closely. Qualifiers: Altered mental status type: delirium Qualified Code(s): R41.0 - Disorientation, unspecified (4) Constipation Status: Acute Assessment and plan: Patient presented with acute on chronic constipation. CT of the abdomen and pelvis without contrast today shows large stool burden, worst in the rectum. Findings likely due to chronic constipation. Milk and molasses enema ordered in the ED. - ct. Milk of magnesia - Will monitor I&O. Qualifiers: Constipation type: unspecified constipation type Qualified Code(s): K59.00 - Constipation, unspecified (5) HLD (hyperlipidemia) Status: Chronic Assessment and plan: continue patient's Zocor. Qualifiers: Hyperlipidemia type: pure hypercholesterolemia Qualified Code(s): E78.00 - Pure hypercholesterolemia, unspecified; E78.0 - Pure hypercholesterolemia (6) Acute urinary retention Status: Acute Assessment and plan: Presented wih acute urinary retention and distended abdomen. Currently Altered. In ED, rivero cah placed with 1500 of urine taken. - monitor I/O - gentle hydration. (7) Phantom limb pain Status: Acute Assessment and plan: Prev R AKA. Patient reports phantom pain to right stump. Currently taking Baclofen TID and Gabapentin TID. Reports relieve. Patient with Morphine PRN. - gabapentin TID changed to BID 2/2 renal concerns (8) Skin excoriation Status: Chronic Assessment and plan: Patient presents with large area of skin breakdown and rash with several open areas located on the patient's mid to lower back. Patient was treated previously for this on 09/27/16. Patient has difficulty cleaning himself from incontinence of urine and fecal matter which most likely contributes to this chronic condition. Wound care consult ordered as well as daily wound care. (9) DVT prophylaxis Status: Acute Assessment and plan: continue heparin - Subjective Interval history: Mr Bartlett is an 81 yo M day 2 of admission 2/2 >24 hour AMS and unresolved UTI w/ hx CAD, HLD, PAD. Today he remains confused, and he believed I was his grandson. His only complaints today was feeling lightheaded. He has no back pain, PEREZ, n/v/f/c. - Constitutional Vitals: Temp Pulse Resp BP Pulse Ox 98.7 F 94 16 100/51 97 10/20/16 06:44 10/20/16 06:44 10/20/16 06:44 10/20/16 06:44 10/20/16 06:44 General appearance: Present: A&O X 0 - Head Head exam: Present: atraumatic, normocephalic - Respiratory Respiratory exam: Present: CTAB. Absent: accessory muscle use, rales, rhonchi, wheezes - Cardiovascular Cardiovascular exam: Present: RRR, +S1, +S2. Absent: diastolic murmur, gallop, rubs, systolic murmur - GI/Abdominal GI/Abdominal exam: Present: normal bowel sounds, soft, no peritoneal signs. Absent: distended, tenderness - Psychiatric Psychiatric exam: Present: normal affect, normal mood Internal Medicine: Result - Labs CBC & Chem 7: 10/20/16 00:47 10/20/16 00:47 Labs: Short CBC 10/20/16 Range/Units 00:47 WBC 7.4 (4.3-11.1) K/mcL Hgb 9.9 L (12.9-16.9) g/dL Hct 33.4 L (37.5-50.1) % Plt Count 118 L (140-400) K/mcL Neutrophils # 4.9 (1.6-8.9) K/mcL BMP 10/20/16 00:47 Sodium 143 Potassium 4.0 Chloride 108 Carbon Dioxide 26 BUN 29 H D Creatinine 1.23 Glucose 65 L Calcium 8.4 L Cardiac Enzymes 10/19/16 10/20/16 Range/Units 18:41 00:47 Troponin I 0.01 0.00 (0-0.03) ng/mL - ABG Interpretation ABG results: PT/INR, D-dimer PT 13.3 Seconds (9.4-12.1) H 10/20/16 00:47 Consult Discharge Plan - Plan Referrals: NONE,PCP [Primary Care Provider] - (patient is from [facility]) <Marco Lozada P - Last Filed: 11/05/16 08:47> Date of Encounter: 11/05/16 - Constitutional Vitals: Temp Pulse Resp BP Pulse Ox 98.8 F 83 16 123/75 95 10/21/16 11:22 10/21/16 11:22 10/21/16 11:22 10/21/16 11:22 10/21/16 11:22 Internal Medicine: Result - Labs CBC & Chem 7: 10/21/16 03:20 10/21/16 03:20 - ABG Interpretation ABG results: PT/INR, D-dimer PT 13.3 Seconds (9.4-12.1) H 10/20/16 00:47 - Attending Attestation I examined this patient and my medical decision-making was reviewed with the Resident Physician. I agree with the documented findings, disposition and treatment plan as described except to the extent set forth below. I was not able to send this note for many days after the note was generated. Please see the event note on the same day when this progress note was generated.
[2016-10-20] MEDS: Insulin LISPRO 300 UNITS/3 ML VIAL SQ SCH ×4 (10:00→23:31)
[2016-10-20] MEDS: Aspirin Enteric Coated 81 MG Tablet PO SCH (10:00)
[2016-10-20] MEDS: Cyanocobalamin (B-12) 1,000 MCG TABLET PO SCH (10:00)
[2016-10-20] MEDS: Gabapentin 400 MG CAPSULE PO SCH ×2 (10:00→22:33)
[2016-10-20] MEDS: Baclofen 10 MG TABLET PO SCH ×3 (10:00→22:33)
[2016-10-20] MEDS: Cyprohepatdine 4 MG TABLET PO SCH ×3 (10:00→22:34)
[2016-10-20] MEDS: Primidone 50 MG TABLET PO SCH ×2 (15:02→23:31)
[2016-10-20] MEDS ORDERED: Vancomycin 1,000 MG in D5% in Water 250 ML IVPB SCH (16:00)
--- NOTE | 2016-10-20 16:17 | Event Note ---
Date of Encounter: 10/20/16 Time of Encounter: 16:15 I have seen this patient independently and examined independently. I was unable to cosign the note of a resident as it was persistently showing me "updating progress and cannot assess the for any acute changes" Briefly 81-year-old gentleman admitted from emergency room for altered mental status. Sepsis/UTI is likely reason for his altered mental status. Please see the resident's note for details management and plan.
--- NOTE | 2016-10-20 17:14 | Electrocardiograph Report ---
[place] [id number] Test Date: 2016-10-19 Pat Name: Dominik Bartlett Department: 102 Room: 2A22 Gender: M Veterinary Receptionist: : [id number] Requested By: Kyaw Powell Order Number: [id number] Reading MD: Clem Arguello MD Measurements Intervals [place] Rate: 98 P: 71 MO: 153 QRS: -31 QRSD: 81 T: 89 QT: 321 QTc: 377 Interpretive Statements SINUS RHYTHM MARKED LEFT AXIS DEVIATION BASELINE ARTIFACT Electronically Signed On 10-20-2016 17:13:23 EDT by Clem Arguello MD
[2016-10-20] MEDS: Mirtazapine 15 MG TABLET PO SCH (22:34)
[2016-10-20] MEDS: traZODone 50 MG TABLET PO SCH (22:34)
[2016-10-21] MEDS: D5% in Water 1,000 ML IVC PRN (02:29)
[2016-10-21 04:03] LABS: Hematocrit 34.1 % (37.5-50.1); Hemoglobin 10.2 g/dL (12.9-16.9); Mean Corpuscular HGB Conc 29.9 g/dL (31.6-35.5); Mean Corpuscular Hemoglobin 24.1 pg (28.0-33.3); Mean Corpuscular Volume 80.4 fL (83.0-100.0); Mean Platelet Volume 13.1 fL (9.4-12.4); Platelet Count 128 K/mcL (140-400); Red Blood Count 4.24 M/mcL (4.19-5.50); Red Cell Distribution Width 14.6 % (11.5-14.5)
[2016-10-21 04:20] LABS: BUN/Creatinine Ratio 17 (6-26); Calcium 8.7 mg/dL (8.6-10.8); Carbon Dioxide 24 mEq/L (19-29); Chloride 106 mEq/L (98-109); Glucose 96 mg/dL (70-99); Osmolality,Calculated 290 (280-300); Potassium 3.3 mEq/L (3.5-4.5); Sodium 140 mEq/L (136-145); eGFR For African Americans > 60 (> 60); eGFR For Non-African Americans > 60 (> 60)
[2016-10-21 04:24] LABS: Blood Urea Nitrogen 13 mg/dL (8-26)
[2016-10-21] MEDS: *HR* Heparin 5,000 UNIT/ML VIAL SQ SCH (05:52)
[2016-10-21] MEDS: Insulin LISPRO 300 UNITS/3 ML VIAL SQ SCH ×2 (07:46→11:25)
[2016-10-21] MEDS: 0.9 % Sodium Chloride 1,000 ML IVC SCH (08:05)
[2016-10-21] MEDS: Piperacillin/Tazobactam 3.375 GM in D5% in Water (Mini-Bag+) 100 ML IVPB SCH (08:05)
[2016-10-21] MEDS: Pantoprazole 40 MG VIAL IVP SCH (08:06)
[2016-10-21] MEDS: Gabapentin 400 MG CAPSULE PO SCH (08:17)
[2016-10-21] MEDS: Cyprohepatdine 4 MG TABLET PO SCH (08:17)
[2016-10-21] MEDS: Cyanocobalamin (B-12) 1,000 MCG TABLET PO SCH (08:17)
[2016-10-21] MEDS: Baclofen 10 MG TABLET PO SCH (08:17)
[2016-10-21] MEDS: Aspirin Enteric Coated 81 MG Tablet PO SCH (08:17)
[2016-10-21] MEDS: Primidone 50 MG TABLET PO SCH (08:17)
[2016-10-21] MEDS ORDERED: Sennosides/Docusate Sodium TABLET PO SCH (09:00)
[2016-10-21] MEDS ORDERED: Aminoglycoside Consult 1 EACH MC ONE (09:09)
--- NOTE | 2016-10-21 09:16 | Discharge Summary ---
<Fam Grossman - Last Filed: 10/21/16 11:25> Date of Encounter: 10/21/16 Time of Encounter: 09:21 - Discharge Diagnosis (1) Failure to thrive Priority: Secondary Status: Chronic Qualifiers: Failure to thrive age range: in adult Qualified Code(s): R62.7 - Adult failure to thrive (2) UTI (urinary tract infection) Priority: Secondary Status: Acute Qualifiers: Urinary tract infection type: acute cystitis Hematuria presence: with hematuria Qualified Code(s): N30.01 - Acute cystitis with hematuria (3) Altered mental status Priority: Primary Status: Acute Qualifiers: Altered mental status type: delirium Qualified Code(s): R41.0 - Disorientation, unspecified (4) Constipation Priority: Secondary Status: Acute Qualifiers: Constipation type: unspecified constipation type Qualified Code(s): K59.00 - Constipation, unspecified (5) HLD (hyperlipidemia) Priority: Secondary Status: Chronic Qualifiers: Hyperlipidemia type: pure hypercholesterolemia Qualified Code(s): E78.00 - Pure hypercholesterolemia, unspecified; E78.0 - Pure hypercholesterolemia (6) Acute urinary retention Priority: Secondary Status: Acute (7) Phantom limb pain Priority: Secondary Status: Acute (8) Skin excoriation Priority: Secondary Status: Chronic (9) DVT prophylaxis Priority: Secondary Status: Acute - Discharge Medications Home Medications: Aspirin [Lo-Dose Aspirin EC] 81 mg PO DAILY 09/06/16 [History] Baclofen 10 mg PO TID 09/06/16 [History] Clopidogrel [Plavix] 75 mg PO DAILY 09/06/16 [History] Docusate [Colace] 100 mg PO DAILY 09/06/16 [History] Gabapentin [Neurontin] 800 mg PO TID 09/06/16 [History] Metoprolol [Lopressor] 25 mg PO DAILY 09/06/16 [History] Mirtazapine 7.5 mg PO HS #30 tablet 09/06/16 [Rx] Mv-Mn/FA/Vit K/Lycop/Lut/Coq10 [Daily Multivitamin Capsule] 1 tab PO DAILY 09/06 [History] Oxycodone HCl/Acetaminophen [Percocet 5-325 mg Tablet] 1 tab PO Q4H PRN [History] Primidone [Mysoline] 100 mg PO Q8HR 09/06/16 [History] Simvastatin [Zocor] 20 mg PO HS 09/06/16 [History] traZODone [TraZODone] 50 mg PO HS 09/06/16 [History] Albuterol Sulfate [Ventolin Hfa] 2 puff IH Q6H PRN 09/27/16 [History] Cyanocobalamin (Vitamin B-12) [Vitamin B12] 1,000 mcg PO DAILY 09/27/16 [History ] Cyprohepatdine [Periactin] 4 mg PO TID 09/27/16 [History] Fluconazole [Diflucan] 100 mg PO DAILY 09/27/16 [History] Amino Acids/Protein Hydrolys [Pre Protein 20 Liquid] 30 ml PO DAILY 10/19/16 [ History] Allergies/Adverse Reactions: 3 Allergy/AdvReac Type Severity Reaction Status Date / Time No Known Allergies Allergy Verified 09/27/16 11:25 Date of admission: 10/19/16 16:27 Primary care physician: PCP NONE Consults: 10/19/16 16:51 Consult to Wound Care [CONS] Routine Reason for Consult: Patient has skin breakdown on his lower back which was previously treated and was positive for candidiasis. Call Completed: No 10/19/16 16:52 Consult to Palliative Care [CONS] Routine Comment: Consulting Provider: [facility] Reason for Consult: Patient comes from SNF with severe AMS due to pneumonia, skin breakdown on his back previously treated for candidiasis and continues to be problematic, and failure to thrive. Patient has family but none present at admission. Discussion appropriate with family regarding palliative care based on patient's current health status. Call Completed: Yes - Patient Status Disposition: Transfer SNF Condition: Fair Functional capacity at discharge: bed bound Overall status at discharge: patient is progressing back to baseline - Discharge Instructions Follow Up With: NONE,PCP [Primary Care Provider] - (patient is from [facility]) - Diet and Activity Diet: advance to your usual diet Hospital course: Mr. Bartlett is a 81 year old male who was admitted due to 24 hour AMS and unresolved UTI w/ hx CAD, HLD, PAD, sepsis from UTI on 09/27/16. In Ed patient was started on IV Zosyn, levaquin, and vancomycin. CXR showed bibasilar atelectasis, Head CT no acute impression, EKG sinus rhythm and abd/pevlix CT - large stool burden worse in rectum, cholelithasis and small right pleural effusion. Urine, and blood Cx came back negative. Patient progressed to baseline on day 2 of hospitalization and requested to be D/C. Imaging and Cx were negative - Time Spent with Patient Total time spent providing and/or coordinating discharge services: - Constitutional Vitals: Temp Pulse Resp BP Pulse Ox 99.4 F 103 16 160/68 96 10/21/16 07:13 10/21/16 07:13 10/21/16 07:13 10/21/16 07:13 10/21/16 07:13 General appearance: Present: A&O X 0 - Head Head exam: Present: atraumatic, normocephalic - Respiratory Respiratory exam: Present: decreased breath sounds. Absent: accessory muscle use, rales, rhonchi, wheezes - Cardiovascular Cardiovascular exam: Present: distant heart sounds, +S1, +S2. Absent: diastolic murmur, rubs, systolic murmur - GI/Abdominal GI/Abdominal exam: Present: normal bowel sounds, soft, no peritoneal signs. Absent: distended, tenderness - Neurological Exam Neurological exam: Present: altered (inappropriately responds to questions, according to chart review this is baseline for patient) <Marco Lozada - Last Filed: 10/21/16 16:32> Date of Encounter: 10/21/16 Date of admission: 10/19/16 16:27 Primary care physician: PCP NONE Consults: 10/19/16 16:51 Consult to Wound Care [CONS] Routine Reason for Consult: Patient has skin breakdown on his lower back which was previously treated and was positive for candidiasis. Call Completed: No 10/19/16 16:52 Consult to Palliative Care [CONS] Routine Comment: Consulting Provider: [facility] [place] Reason for Consult: Patient comes from SNF with severe AMS due to pneumonia, skin breakdown on his back previously treated for candidiasis and continues to be problematic, and failure to thrive. Patient has family but none present at admission. Discussion appropriate with family regarding palliative care based on patient's current health status. Call Completed: Yes Hospital course: Mr. Bartlett is a 81 year old male - Time Spent with Patient Total time spent providing and/or coordinating discharge services: - Constitutional Vitals: Temp Pulse Resp BP Pulse Ox 98.8 F 83 16 123/75 95 10/21/16 11:22 10/21/16 11:22 10/21/16 11:22 10/21/16 11:22 10/21/16 11:22 - Attending Attestation I examined this patient and my medical decision-making was reviewed with the Resident Physician. I agree with the documented findings, disposition and treatment plan as described except to the extent set forth below.
--- NOTE | 2016-10-21 09:24 | Palliative Progress Note ---
Date of Encounter: 10/21/16 Time of Encounter: 09:15 - Time Spent With Patient Total time spent is greater than 50% in coordination of care (as documented) at patient's floor/unit and/or counseling patient: - Subjective Interval history: Patient alert and conversant this am, however oriented to name only. Can answer some questions regarding family ('s/child names, etc) States he is comfortable this am. C/O "runny nose". - Constitutional Vitals: Abnormal lab results Hgb 10.2 g/dL (12.9-16.9) L 10/21/16 03:20 Hct 34.1 % (37.5-50.1) L 10/21/16 03:20 MCV 80.4 fL (83.0-100.0) L 10/21/16 03:20 MCH 24.1 pg (28.0-33.3) L 10/21/16 03:20 MCHC 29.9 g/dL (31.6-35.5) L 10/21/16 03:20 RDW 14.6 % (11.5-14.5) H 10/21/16 03:20 Plt Count 128 K/mcL (140-400) L 10/21/16 03:20 MPV 13.1 fL (9.4-12.4) H 10/21/16 03:20 Reactive Lymphocytes Present (Not Present) A 10/20/16 00:47 Platelet Estimate Slight Decrease (Normal) L 10/20/16 00:47 Immature Plt Fraction 9.3 % (1.1-6.1) H 10/19/16 13:15 PT 13.3 Seconds (9.4-12.1) H 10/20/16 00:47 Potassium 3.3 mEq/L (3.5-4.5) L 10/21/16 03:20 POC Glucose 105 (58-89) H 10/21/16 07:25 Albumin 3.3 g/dL (3.5-5.0) L 10/19/16 12:19 Globulin 4.0 g/dL (2.4-3.5) H 10/19/16 12:19 Albumin/Globulin Ratio 0.8 (1.1-2.2) L 10/19/16 12:19 HDL Cholesterol 33 mg/dL (40-59) L 10/20/16 00:47 TSH 0.311 mcIU/mL (0.350-4.840) L 10/19/16 12:19 Ur Barbiturates Screen Positive ng/mL (Dfcggi=044) H 10/19/16 11:40 Palliative Quality Palliative Quality: Screen for Code Status: Yes, Screen for Goals of Care: Yes, Screen for Pain: Yes, If Pain Regimen Started, Initiate Bowel Regimen: Yes, Screen for Nausea/Vomitting: Yes Code Status: 10/20/16 02:44 CODE [Resuscitation Status: Active] [RES] Routine Comment: Resuscitation Status: DNR-Comfort Care-Arrest - Labs CBC & Chem 7: 10/21/16 03:20 10/21/16 03:20 Labs: Laboratory Results - last 24 hr 10/20/16 10/20/16 10/20/16 06:58 06:59 11:14 WBC RBC Hgb Hct MCV MCH MCHC RDW Plt Count MPV Sodium Potassium Chloride Carbon Dioxide BUN Creatinine Est GFR ( Amer) Est GFR (Non-Af Amer) BUN/Creatinine Ratio Glucose POC Glucose 56 L 88 98 H Calculated Osmolality Calcium 10/20/16 10/20/16 10/20/16 13:00 16:07 23:38 WBC RBC Hgb Hct MCV MCH MCHC RDW Plt Count MPV Sodium Potassium Chloride Carbon Dioxide BUN Creatinine Est GFR ( Amer) Est GFR (Non-Af Amer) BUN/Creatinine Ratio Glucose POC Glucose 72 82 99 H Calculated Osmolality Calcium 10/21/16 10/21/16 10/21/16 03:20 03:20 07:25 WBC 6.9 RBC 4.24 Hgb 10.2 L Hct 34.1 L MCV 80.4 L MCH 24.1 L MCHC 29.9 L RDW 14.6 H Plt Count 128 L MPV 13.1 H Sodium 140 Potassium 3.3 L Chloride 106 Carbon Dioxide 24 BUN 13 D Creatinine 0.78 Est GFR ( Amer) > 60 Est GFR (Non-Af Amer) > 60 BUN/Creatinine Ratio 17 Glucose 96 POC Glucose 105 H Calculated Osmolality 290 Calcium 8.7 - ABG Interpretation ABG results: PT/INR, D-dimer PT 13.3 Seconds (9.4-12.1) H 10/20/16 00:47 Consult Discharge Plan - Plan Referrals: NONE,PCP [Primary Care Provider] - (patient is from [facility])
--- NOTE | 2016-10-21 09:26 | Physician Discharge Referral ---
<Fam Grossman - Last Filed: 10/21/16 09:26> ExtendedCare Referral Info Transfer To: [facility] Provider in Charge after Transfer: PCP Institutional Level of Care: Skilled - Diagnosis (1) Failure to thrive Status: Chronic (2) UTI (urinary tract infection) Status: Acute (3) Altered mental status Status: Acute (4) Constipation Status: Acute (5) HLD (hyperlipidemia) Status: Chronic (6) Acute urinary retention Status: Acute (7) Phantom limb pain Status: Acute (8) Skin excoriation Status: Chronic (9) DVT prophylaxis Status: Acute - Transfer Medications Home Medications: Aspirin [Lo-Dose Aspirin EC] 81 mg PO DAILY 09/06/16 [History] Baclofen 10 mg PO TID 09/06/16 [History] Clopidogrel [Plavix] 75 mg PO DAILY 09/06/16 [History] Docusate [Colace] 100 mg PO DAILY 09/06/16 [History] Gabapentin [Neurontin] 800 mg PO TID 09/06/16 [History] Metoprolol [Lopressor] 25 mg PO DAILY 09/06/16 [History] Mirtazapine 7.5 mg PO HS #30 tablet 09/06/16 [Rx] Mv-Mn/FA/Vit K/Lycop/Lut/Coq10 [Daily Multivitamin Capsule] 1 tab PO DAILY 09/06 [History] Oxycodone HCl/Acetaminophen [Percocet 5-325 mg Tablet] 1 tab PO Q4H PRN [History] Primidone [Mysoline] 100 mg PO Q8HR 09/06/16 [History] Simvastatin [Zocor] 20 mg PO HS 09/06/16 [History] traZODone [TraZODone] 50 mg PO HS 09/06/16 [History] Albuterol Sulfate [Ventolin Hfa] 2 puff IH Q6H PRN 09/27/16 [History] Cyanocobalamin (Vitamin B-12) [Vitamin B12] 1,000 mcg PO DAILY 09/27/16 [History ] Cyprohepatdine [Periactin] 4 mg PO TID 09/27/16 [History] Fluconazole [Diflucan] 100 mg PO DAILY 09/27/16 [History] Amino Acids/Protein Hydrolys [Pre Protein 20 Liquid] 30 ml PO DAILY 10/19/16 [ History] Allergies/Adverse Reactions: 3 Allergy/AdvReac Type Severity Reaction Status Date / Time No Known Allergies Allergy Verified 09/27/16 11:25 - Respiratory Orders Smoking Cessation: Smoking cessation has been advised. For more information, call the [employer] Quit Line at 1-677-XOYK-NOW. CERTIFICATION: I certify that the transfer of the above named patient to an Extended Care Facility is necessary for the continuing treatment of the diagnosis listed. The above information is true and accurate reflection of patient's current condition. Confidential - Redisclosure prohibited without a patient's written consent. <Marco Lozada P - Last Filed: 10/21/16 16:32> - Respiratory Orders Smoking Cessation: Smoking cessation has been advised. For more information, call the [employer] Quit Line at 1-907-WPGX-NOW. CERTIFICATION: I certify that the transfer of the above named patient to an Extended Care Facility is necessary for the continuing treatment of the diagnosis listed. The above information is true and accurate reflection of patient's current condition. Confidential - Redisclosure prohibited without a patient's written consent.
[2016-10-21] MEDS ORDERED: Levofloxacin 750 MG/150 ML 750 MG/150 ML BAG IVPB SCH (11:00)
[2016-10-21 11:23] VITALS: BP 123/75
== END 2016-10-21 12:39 | DRG 689 ==
LOC: EMEROO 11:04 → 2ANU 11:04
PROVIDERS: ADMIT Internal Medicine; ATTEND Internal Medicine

== ENCOUNTER 2020-10-24 15:22 | Inpatient (IN) ==
[2020-10-24] MEDS ORDERED: 0.9 % Sodium Chloride 1,000 ML IV ONE ×2 (15:48→20:35)
[2020-10-24 16:32] LABS: Basophils # 0.1 K/mcL (0.0-0.2); Basophils % 0.4 %; Eosinophils # 0.1 K/mcL (0.0-0.6); Hematocrit 37.1 % (37.5-50.1); Hemoglobin 11.1 g/dL (12.9-16.9); Immature Granulocytes % 0.4 % (0-4); Lymphocytes % 7.5 %; Mean Corpuscular HGB Conc 29.9 g/dL (31.6-35.5); Mean Corpuscular Hemoglobin 22.9 pg (28.0-33.3); Mean Corpuscular Volume 76.7 fL (83.0-100.0); Monocytes # 1.2 K/mcL (0.0-1.3); Monocytes % 8.6 %; Neutrophils # 11.1 K/mcL (1.6-8.9); Platelet Count 174 K/mcL (140-400); Red Blood Count 4.84 M/mcL (4.19-5.50); Red Cell Distribution Width 13.5 % (11.5-14.5); Segmented Neutrophils % 82.1 %; White Blood Count 13.6 K/mcL (4.3-11.1)
[2020-10-24 16:52] LABS: INR 1.4; Prothrombin Time 15.7 Seconds (9.4-12.1)
[2020-10-24 16:54] LABS: Activated Partial Thrombo Time 34.6 Seconds (26.0-36.0)
[2020-10-24] MEDS ORDERED: cefTRIAXone 1,000 MG in Water for inj. (sterile) 10 ML IVP ONE (17:40)
[2020-10-24] MEDS ORDERED: Azithromycin 500 MG in 0.9 % Sodium Chloride 250 ML IVPB ONE (17:41)
[2020-10-24 17:51] LABS: Alanine Aminotransferase 3 Units/L (7-52); Albumin 3.5 g/dL (3.5-5.7); Albumin/Globulin Ratio 1.1 (1.1-2.2); Alkaline Phosphatase 59 Units/L (34-104); Aspartate Amino Transferase 12 Units/L (13-39); BUN/Creatinine Ratio 26 (6-26); Bilirubin,Direct 0.3 mg/dL (0.0-0.2); Bilirubin,Indirect 0.5 mg/dL (0.0-1.0); Bilirubin,Total 0.8 mg/dL (0.3-1.0); Blood Urea Nitrogen 17 mg/dL (8-23); Calcium 9.7 mg/dL (8.6-10.3); Carbon Dioxide 25 mEq/L (23-29); Chloride 105 mEq/L (98-107); Globulin 3.1 g/dL (2.4-3.5); Glucose 130 mg/dL (70-105); Magnesium 1.7 mg/dL (1.6-2.6); Osmolality,Calculated 291 (280-300); Phosphorous 1.7 mg/dL (2.7-4.5); Potassium 3.7 mEq/L (3.5-5.1); Sodium 139 mEq/L (136-145); Total Protein 6.6 g/dL (6.4-8.9); Troponin I < 0.03 ng/mL (< 0.04); eGFR For African Americans > 60 (> 60); eGFR For Non-African Americans > 60 (> 60)
[2020-10-24 19:19] LABS: Ethanol < 10 mg/dL (Less than 10)
[2020-10-24 21:18] LABS: Bacteria,Urine Moderate per hpf (None-Few); Bilirubin,Urine Negative (Negative); Blood,Urine Moderate (Negative); Clarity,Urine Turbid (Clear); Color,Urine Yellow (Yellow); Glucose,Urine (UA) Normal (Normal); Ketones,Urine Negative (Negative); Leukocyte Esterase,Urine Large (Negative); Mucus,Urine Moderate per lpf (None-Few); Nitrite,Urine Negative (Negative); PH,Urine 6.5 pH Units (5.0-8.0); Protein,Urine 200 mg/dL (Neg-Trace); RBC,Urine 30-50 per hpf (0-3); Specific Gravity,Urine 1.026 (1.010-1.025); Squamous Epithelial Cell,Urine Few per hpf (None-Few); Urobilinogen,Urine >=8.0 mg/dL (Normal); WBC,Urine 50-100 per hpf (0-3)
[2020-10-24 21:26] LABS: Amphetamine Screen,Urine Negative ng/mL (Cutoff=1000); Barbiturate Screen,Urine Negative ng/mL (Cutoff=200); Benzodiazepines Screen,Urine Negative ng/mL (Cutoff=200); Cannabinoid Screen,Urine Negative ng/mL (Cutoff = 50); Cocaine Screen,Urine Negative ng/mL (Cutoff= 300); Opiate Screen,Urine Negative ng/mL (Cutoff=300); Phencyclidine Screen,Urine Negative ng/mL (Cutoff=25)
[2020-10-24 22:54] LABS: Influenza A PCR Negative (Negative); Influenza B PCR Negative (Negative); Resp. Syncytial Virus PCR Negative (Negative); SARS-CoV-2 by PCR (In House) Negative (Negative)
[2020-10-24] MEDS ORDERED: cefTRIAXone 1,000 MG in 0.9 % Sodium Chloride Mini Bag 100 ML IVPB ONE (23:21)
[2020-10-24] MEDS ORDERED: Acetaminophen 325 MG TABLET PO PRN (23:36)
[2020-10-24] MEDS ORDERED: Ondansetron 4 MG/2 ML VIAL IVP PRN (23:36)
[2020-10-24] MEDS ORDERED: Naloxone 0.4 MG/ML INJ IVP PRN (23:36)
[2020-10-25] MEDS ORDERED: MOM Conc 10 ML UD.LIQ PO PRN (01:38)
[2020-10-25] MEDS ORDERED: Sennosides/Docusate Sodium TABLET PO PRN (01:38)
[2020-10-25] MEDS: 0.9 % Sodium Chloride 1,000 ML IVC SCH ×3 (01:49→19:41)
[2020-10-25] MEDS: Levalbuterol Neb 1.25 MG/3 ML IH SCH ×4 (03:39→22:01)
[2020-10-25 06:33] LABS: Hematocrit 35.5 % (37.5-50.1); Hemoglobin 10.3 g/dL (12.9-16.9); Mean Corpuscular Hemoglobin 22.7 pg (28.0-33.3); Mean Corpuscular Volume 78.2 fL (83.0-100.0); Mean Platelet Volume 11.7 fL (9.4-12.4); Platelet Count 167 K/mcL (140-400); Red Blood Count 4.54 M/mcL (4.19-5.50); Red Cell Distribution Width 13.8 % (11.5-14.5)
[2020-10-25 06:47] LABS: INR 1.4; Prothrombin Time 15.5 Seconds (9.4-12.1)
[2020-10-25 06:50] LABS: Activated Partial Thrombo Time 36.3 Seconds (26.0-36.0)
[2020-10-25 06:51] LABS: BUN/Creatinine Ratio 25 (6-26); Blood Urea Nitrogen 13 mg/dL (8-23); Calcium 8.9 mg/dL (8.6-10.3); Carbon Dioxide 23 mEq/L (23-29); Chloride 108 mEq/L (98-107); Chol/HDL Ratio 2.6 (0-4.9); Cholesterol 82 mg/dL (< 200); Glucose 87 mg/dL (70-105); HDL Cholesterol 32 mg/dL (40-59); LDL Cholesterol,Calculated 38 mg/dL (< 100); Osmolality,Calculated 287 (280-300); Potassium 3.5 mEq/L (3.5-5.1); Sodium 139 mEq/L (136-145); Triglycerides 62 mg/dL (< 150); eGFR For African Americans > 60 (> 60); eGFR For Non-African Americans > 60 (> 60)
[2020-10-25] MEDS ORDERED: Perflutren Lipid Microsphere 1.3 ML in 0.9 % Sodium Chloride 8.7 ML IVP PRN (08:02)
[2020-10-25] MEDS: Carbidopa/Levodopa 25/100 TABLET PO SCH ×3 (08:25→20:44)
[2020-10-25] MEDS: Cyanocobalamin (B-12) 1,000 MCG TABLET PO SCH (08:25)
[2020-10-25] MEDS: Aspirin Enteric Coated 81 MG Tablet PO SCH (08:25)
[2020-10-25] MEDS: Mirtazapine 15 MG TABLET PO SCH (20:44)
[2020-10-25] MEDS: cefTRIAXone 2,000 MG in 0.9 % Sodium Chloride Mini Bag 100 ML IVPB SCH (20:44)
[2020-10-26] MEDS: Levalbuterol Neb 1.25 MG/3 ML IH SCH ×4 (04:34→22:04)
[2020-10-26 05:17] LABS: Hematocrit 30.4 % (37.5-50.1); Hemoglobin 9.2 g/dL (12.9-16.9); Mean Corpuscular HGB Conc 30.3 g/dL (31.6-35.5); Mean Corpuscular Hemoglobin 23.2 pg (28.0-33.3); Mean Corpuscular Volume 76.8 fL (83.0-100.0); Mean Platelet Volume 12.4 fL (9.4-12.4); Platelet Count 157 K/mcL (140-400); Red Blood Count 3.96 M/mcL (4.19-5.50); Red Cell Distribution Width 13.9 % (11.5-14.5); White Blood Count 9.7 K/mcL (4.3-11.1)
[2020-10-26] MEDS: 0.9 % Sodium Chloride 1,000 ML IVC SCH ×2 (05:24→15:27)
[2020-10-26 05:54] LABS: BUN/Creatinine Ratio 18 (6-26); Blood Urea Nitrogen 9 mg/dL (8-23); Calcium 8.2 mg/dL (8.6-10.3); Carbon Dioxide 24 mEq/L (23-29); Chloride 110 mEq/L (98-107); Glucose 81 mg/dL (70-105); Osmolality,Calculated 288 (280-300); Potassium 3.1 mEq/L (3.5-5.1); Sodium 140 mEq/L (136-145); eGFR For African Americans > 60 (> 60); eGFR For Non-African Americans > 60 (> 60)
[2020-10-26] MEDS ORDERED: Ipratropium/Albuterol Neb 3 ML IH PRN (08:17)
[2020-10-26] MEDS ORDERED: Carbidopa/Levodopa 25/100 TABLET PO SCH (09:00)
[2020-10-26] MEDS ORDERED: Cyanocobalamin (B-12) 1,000 MCG TABLET PO SCH (09:00)
[2020-10-26] MEDS ORDERED: Aspirin Enteric Coated 81 MG Tablet PO SCH (09:00)
[2020-10-26] MEDS ORDERED: ROSUVASTATIN CALCIUM 20 MG PO SCH (09:00)
[2020-10-26] MEDS: Aspirin Enteric Coated 81 MG Tablet PO SCH (09:16)
[2020-10-26] MEDS: Carbidopa/Levodopa 25/100 TABLET PO SCH ×3 (09:16→21:02)
[2020-10-26] MEDS: Cyanocobalamin (B-12) 1,000 MCG TABLET PO SCH (09:16)
[2020-10-26] MEDS: Gabapentin 100 MG CAPSULE PO SCH (09:16)
[2020-10-26] MEDS: Azithromycin 500 MG in 0.9 % Sodium Chloride 250 ML IVPB SCH (09:17)
[2020-10-26] MEDS ORDERED: Albumin 25% 25gram/100mL 25 GM/100 ML IV.SOLN IVPB ONE (19:54)
[2020-10-26] MEDS ORDERED: Mirtazapine 15 MG TABLET PO SCH (21:00)
[2020-10-26] MEDS: Mirtazapine 15 MG TABLET PO SCH (21:02)
[2020-10-26] MEDS: cefTRIAXone 2,000 MG in 0.9 % Sodium Chloride Mini Bag 100 ML IVPB SCH (21:46)
[2020-10-27] MEDS: 0.9 % Sodium Chloride 1,000 ML IVC SCH (03:15)
[2020-10-27] MEDS: Levalbuterol Neb 1.25 MG/3 ML IH SCH ×4 (04:02→21:11)
[2020-10-27] MEDS: Carbidopa/Levodopa 25/100 TABLET PO SCH ×3 (08:30→21:11)
[2020-10-27] MEDS: Gabapentin 100 MG CAPSULE PO SCH (08:30)
[2020-10-27] MEDS: Aspirin Enteric Coated 81 MG Tablet PO SCH (08:30)
[2020-10-27] MEDS: Cyanocobalamin (B-12) 1,000 MCG TABLET PO SCH (08:30)
[2020-10-27] MEDS: Azithromycin 500 MG in 0.9 % Sodium Chloride 250 ML IVPB SCH (08:31)
[2020-10-27 09:26] LABS: Basophils % 0.5 %; Eosinophils # 0.6 K/mcL (0.0-0.6); Eosinophils % 7.1 %; Hematocrit 32.4 % (37.5-50.1); Hemoglobin 9.5 g/dL (12.9-16.9); Immature Granulocytes % 0.3 % (0-4); Lymphocytes # 1.1 K/mcL (0.6-4.6); Lymphocytes % 12.8 %; Mean Corpuscular HGB Conc 29.3 g/dL (31.6-35.5); Mean Corpuscular Hemoglobin 22.5 pg (28.0-33.3); Mean Corpuscular Volume 76.8 fL (83.0-100.0); Mean Platelet Volume 12.4 fL (9.4-12.4); Monocytes # 0.6 K/mcL (0.0-1.3); Monocytes % 6.6 %; Neutrophils # 6.3 K/mcL (1.6-8.9); Platelet Count 176 K/mcL (140-400); Red Blood Count 4.22 M/mcL (4.19-5.50); Segmented Neutrophils % 72.7 %; White Blood Count 8.7 K/mcL (4.3-11.1)
[2020-10-27 09:46] LABS: BUN/Creatinine Ratio 6 (6-26); Blood Urea Nitrogen 3 mg/dL (8-23); Calcium 8.7 mg/dL (8.6-10.3); Carbon Dioxide 24 mEq/L (23-29); Chloride 111 mEq/L (98-107); Glucose 73 mg/dL (70-105); Osmolality,Calculated 287 (280-300); Potassium 3.2 mEq/L (3.5-5.1); Sodium 141 mEq/L (136-145); eGFR For African Americans > 60 (> 60); eGFR For Non-African Americans > 60 (> 60)
[2020-10-27] MEDS ORDERED: Potassium Chloride Elixir 20 MEQ/15 ML UDC PO ONE (10:50)
[2020-10-27] MEDS: Mirtazapine 15 MG TABLET PO SCH (21:09)
[2020-10-27] MEDS: cefTRIAXone 2,000 MG in 0.9 % Sodium Chloride Mini Bag 100 ML IVPB SCH (21:12)
[2020-10-28] MEDS: Levalbuterol Neb 1.25 MG/3 ML IH SCH ×4 (03:05→22:05)
[2020-10-28 09:33] LABS: BUN/Creatinine Ratio 5 (6-26); Blood Urea Nitrogen 2 mg/dL (8-23); Calcium 8.5 mg/dL (8.6-10.3); Carbon Dioxide 25 mEq/L (23-29); Chloride 110 mEq/L (98-107); Glucose 89 mg/dL (70-105); Osmolality,Calculated 288 (280-300); Potassium 3.3 mEq/L (3.5-5.1); Sodium 141 mEq/L (136-145); eGFR For African Americans > 60 (> 60); eGFR For Non-African Americans > 60 (> 60)
[2020-10-28] MEDS ORDERED: Potassium Effervescent 25 MEQ TABLET.EFF PO ONE (11:26)
[2020-10-28] MEDS: Azithromycin 500 MG in 0.9 % Sodium Chloride 250 ML IVPB SCH (12:02)
[2020-10-28] MEDS: Cyanocobalamin (B-12) 1,000 MCG TABLET PO SCH (12:03)
[2020-10-28] MEDS: Carbidopa/Levodopa 25/100 TABLET PO SCH ×3 (12:03→20:34)
[2020-10-28] MEDS: Gabapentin 100 MG CAPSULE PO SCH (12:03)
[2020-10-28] MEDS: Aspirin Enteric Coated 81 MG Tablet PO SCH (12:03)
[2020-10-28] MEDS: Mirtazapine 15 MG TABLET PO SCH (20:34)
[2020-10-28] MEDS: cefTRIAXone 2,000 MG in 0.9 % Sodium Chloride Mini Bag 100 ML IVPB SCH (20:35)
[2020-10-29] MEDS: Levalbuterol Neb 1.25 MG/3 ML IH SCH ×2 (03:47→09:44)
[2020-10-29] MEDS: Azithromycin 500 MG in 0.9 % Sodium Chloride 250 ML IVPB SCH (08:21)
[2020-10-29] MEDS: Cyanocobalamin (B-12) 1,000 MCG TABLET PO SCH (08:22)
[2020-10-29] MEDS: Gabapentin 100 MG CAPSULE PO SCH (08:22)
[2020-10-29] MEDS: Aspirin Enteric Coated 81 MG Tablet PO SCH (08:22)
[2020-10-29] MEDS: Carbidopa/Levodopa 25/100 TABLET PO SCH (08:23)
[2020-10-29 10:39] VITALS: BP 92/52; PULSE 91; TEMP 97.7; O2SAT 99
== END 2020-10-29 13:52 | disposition home or self-care (01) | DRG 871 ==
LOC: EMEROOARM 15:22 → 3ANU 15:22 → SUATTDRO 23:05 → 3ANU 10-25 01:05
PROVIDERS: ADMIT Student in an Organized Health Care Education/Training Program; ATTEND Hospitalist

== ENCOUNTER 2020-11-18 12:13 | Inpatient (IN) ==
[2020-11-18] MEDS: EPINEPHrine 1 MG in D5% in Water 250 ML IVC SCH ×2 (12:37→19:37)
[2020-11-18] MEDS ORDERED: Isovue-370 500 ML BOTTLE IVP ONE (12:40)
[2020-11-18 12:49] LABS: Hemoglobin 10.5 g/dL (12.9-16.9); Mean Corpuscular HGB Conc 27.6 g/dL (31.6-35.5); Mean Corpuscular Hemoglobin 23.2 pg (28.0-33.3); Mean Corpuscular Volume 84.1 fL (83.0-100.0); Platelet Count 67 K/mcL (140-400); Red Blood Count 4.52 M/mcL (4.19-5.50); Red Cell Distribution Width 16.7 % (11.5-14.5); White Blood Count 10.2 K/mcL (4.3-11.1)
[2020-11-18] MEDS ORDERED: Norepinephrine 4 MG/254 ML IV.SOLN IVC SCH (13:06)
[2020-11-18 13:08] LABS: Alanine Aminotransferase 57 Units/L (7-52); Albumin 2.9 g/dL (3.5-5.7); Albumin/Globulin Ratio 1.5 (1.1-2.2); Alkaline Phosphatase 94 Units/L (34-104); Aspartate Amino Transferase 525 Units/L (13-39); BUN/Creatinine Ratio 12 (6-26); Bilirubin,Total 0.4 mg/dL (0.3-1.0); Blood Urea Nitrogen 10 mg/dL (8-23); Calcium 8.6 mg/dL (8.6-10.3); Carbon Dioxide 22 mEq/L (23-29); Chloride 101 mEq/L (98-107); Glucose 203 mg/dL (70-105); INR 1.4; Osmolality,Calculated 295 (280-300); Prothrombin Time 15.6 Seconds (9.4-12.1); Sodium 140 mEq/L (136-145); Total Protein 4.9 g/dL (6.4-8.9); eGFR For African Americans > 60 (> 60); eGFR For Non-African Americans > 60 (> 60)
[2020-11-18 13:11] LABS: Anisocytosis 1+ (Not Present); Eosinophils # 0.8 K/mcL (0.0-0.6); Large Platelets Present (Not Present); Lymphocytes # 5.9 K/mcL (0.6-4.6); Monocytes # 0.4 K/mcL (0.0-1.3); Neutrophils # 3.1 K/mcL (1.6-8.9); Platelet Estimate Decreased (Normal)
[2020-11-18] MEDS: Norepinephrine 4 MG/254 ML IV.SOLN IVC SCH ×2 (13:17→18:40)
[2020-11-18 13:19] LABS: VBG HCO3 18 mEq/L (21-27); VBG PCO2 51 mmHg (41-51); VBG PH 7.17 pH Units (7.32-7.42); VBG PO2 280 mmHg (25-50)
[2020-11-18] MEDS ORDERED: *HR* Midazolam HCl 2 MG/2 ML VIAL IVP ONE (13:36)
[2020-11-18] MEDS ORDERED: *HR* Midazolam HCl 5 MG/5 ML VIAL IVP ONE (13:37)
[2020-11-18 14:21] LABS: ABG Base Excess -16 mEq/L (-2 to 3); ABG HCO3 11 mEq/L (21-27); ABG Oxygen Saturation 100 % (95-98); ABG PCO2 29 mmHg (35-45); ABG PH 7.18 pH Units (7.32-7.45); ABG PO2 391 mmHg (85-104); ABG TCO2 12 mEq/L (20-26)
[2020-11-18 14:22] LABS: Influenza A PCR Negative (Negative); Influenza B PCR Negative (Negative); Resp. Syncytial Virus PCR Negative (Negative)
[2020-11-18 14:23] LABS: SARS-CoV-2 by PCR (In House) Negative (Negative)
[2020-11-18] MEDS ORDERED: 0.9 % Sodium Chloride 1,000 ML ONE (14:43)
[2020-11-18] MEDS ORDERED: 0.9 % Sodium Chloride 2,000 ML IV ONE (15:08)
[2020-11-18 15:28] LABS: Troponin I 0.14 ng/mL (< 0.04)
[2020-11-18] MEDS ORDERED: Acetaminophen 325 MG TABLET PO PRN (15:55)
[2020-11-18] MEDS ORDERED: Artificial Tears SOLN 15 ML BOTTLE BOTH EYES PRN (15:55)
[2020-11-18] MEDS ORDERED: *HR* Heparin 5,000 UNIT/ML VIAL IVP ONE (15:55)
[2020-11-18] MEDS ORDERED: *HR* Heparin 5,000 UNIT/ML VIAL IVP PRN ×2 (15:55)
[2020-11-18] MEDS ORDERED: Naloxone 0.4 MG/ML INJ IVP PRN (15:55)
[2020-11-18] MEDS ORDERED: Vancomycin (wt based) 1,000 MG VIAL IVPB SCH (16:00)
[2020-11-18] MEDS ORDERED: Heparin 25,000UNIT/250ML 1/2NS 25,000 UNIT/250 ML IV.SOLN IVC SCH (16:00)
[2020-11-18] MEDS ORDERED: Azithromycin 500 MG in 0.9 % Sodium Chloride 250 ML IVPB SCH (16:00)
[2020-11-18] MEDS ORDERED: Piperacillin/Tazobactam 3.375 GM in 0.9 % Sodium Chloride Mini Bag 100 ML IVPB SCH (16:00)
[2020-11-18] MEDS ORDERED: Perflutren Lipid Microsphere 1.3 ML in 0.9 % Sodium Chloride 8.7 ML IVP PRN (16:48)
[2020-11-18] MEDS ORDERED: Ipratropium/Albuterol Neb 3 ML IH PRN (16:52)
[2020-11-18] MEDS ORDERED: Aspirin 81 MG TAB.CHEW PO SCH (17:00)
[2020-11-18] MEDS: Sodium Bicarbonate 150 MEQ in D5% in Water 1,000 ML IVC SCH ×2 (18:15→20:06)
[2020-11-18] MEDS: Artificial Tears SOLN 15 ML BOTTLE BOTH EYES SCH ×3 (18:16→23:59)
[2020-11-18 18:36] VITALS: O2SAT 100
[2020-11-18] MEDS ORDERED: *HR* Dextrose 50 % in Water (Syg) 50 ML SYRINGE ONE (18:51)
[2020-11-18 19:12] LABS: Red Cell Distribution Width 17.1 % (11.5-14.5)
[2020-11-18 19:14] LABS: Immature Platelets 9.4 % (1.1-6.1); Mean Corpuscular HGB Conc 26.9 g/dL (31.6-35.5); Mean Corpuscular Hemoglobin 23.6 pg (28.0-33.3); Mean Corpuscular Volume 87.5 fL (83.0-100.0); Mean Platelet Volume 12.3 fL (9.4-12.4); Red Blood Count 2.97 M/mcL (4.19-5.50); White Blood Count 20.7 K/mcL (4.3-11.1)
[2020-11-18 19:27] LABS: Activated Partial Thrombo Time 56.3 Seconds (26.0-36.0); INR 2.4; Prothrombin Time 26.6 Seconds (9.4-12.1)
[2020-11-18] MEDS ORDERED: Budesonide/Formoterol 160/4.5 1 PUFF INH IH ONE (19:29)
[2020-11-18] MEDS ORDERED: D5% in Water 1,000 ML IVC PRN (19:29)
[2020-11-18] MEDS ORDERED: *HR* Dextrose 50 % in Water (Syg) 50 ML SYRINGE IVP PRN (19:29)
[2020-11-18 19:30] LABS: VBG HCO3 18 mEq/L (21-27); VBG PCO2 80 mmHg (41-51); VBG PH 6.97 pH Units (7.32-7.42); VBG PO2 67 mmHg (25-50)
[2020-11-18 19:36] LABS: Troponin I 3.24 ng/mL (< 0.04)
[2020-11-18] MEDS: FentaNYL (PF) 1,000 MCG/100 ML IV.SOLN IVC SCH (19:36)
[2020-11-18] MEDS ORDERED: Midazolam HCl 50 MG/100 ML IV.SOLN IVC SCH (20:45)
[2020-11-18] MEDS ORDERED: EPINEPHrine 5 MG in D5% in Water 250 ML IVC SCH (20:45)
[2020-11-18] MEDS ORDERED: Chlorhexidine Rinse 15 ML MOUTHWASH MM SCH (21:00)
[2020-11-18] MEDS: Norepinephrine 8 MG in 0.9 % Sodium Chloride 250 ML IVC SCH (21:30)
[2020-11-18 21:41] LABS: Alanine Aminotransferase 94 Units/L (7-52); Albumin 1.9 g/dL (3.5-5.7); Albumin/Globulin Ratio 1.2 (1.1-2.2); Alkaline Phosphatase 85 Units/L (34-104); Aspartate Amino Transferase 513 Units/L (13-39); BUN/Creatinine Ratio 12 (6-26); Bilirubin,Total 0.7 mg/dL (0.3-1.0); Blood Urea Nitrogen 15 mg/dL (8-23); Calcium 6.5 mg/dL (8.6-10.3); Carbon Dioxide 17 mEq/L (23-29); Chloride 102 mEq/L (98-107); Globulin 1.6 g/dL (2.4-3.5); Glucose 286 mg/dL (70-105); Magnesium 2.3 mg/dL (1.6-2.6); Osmolality,Calculated 309 (280-300); Phosphorous 8.3 mg/dL (2.7-4.5); Potassium 3.9 mEq/L (3.5-5.1); Sodium 144 mEq/L (136-145); Total Protein 3.5 g/dL (6.4-8.9); eGFR For African Americans > 60 (> 60); eGFR For Non-African Americans 56 (> 60)
[2020-11-18] MEDS ORDERED: Budesonide/Formoterol 160/4.5 1 PUFF INH IH SCH (22:00)
[2020-11-19] MEDS: FentaNYL (PF) 1,000 MCG/100 ML IV.SOLN IVC SCH (01:20)
[2020-11-19] MEDS: Sodium Bicarbonate 150 MEQ in D5% in Water 1,000 ML IVC SCH (01:56)
[2020-11-19] MEDS: Norepinephrine 8 MG in 0.9 % Sodium Chloride 250 ML IVC SCH (01:57)
[2020-11-19] MEDS ORDERED: Piperacillin/Tazobactam 3.375 GM in 0.9 % Sodium Chloride Mini Bag 100 ML IVPB SCH (04:00)
[2020-11-19 04:19] VITALS: BP 35/18
[2020-11-19] MEDS: Artificial Tears SOLN 15 ML BOTTLE BOTH EYES SCH (04:21)
[2020-11-19 04:23] VITALS: TEMP 86.4
[2020-11-19 04:24] LABS: Bilirubin,Urine Small (Negative); Blood,Urine Large (Negative); Clarity,Urine Turbid (Clear); Color,Urine Amber (Yellow); Glucose,Urine (UA) Normal (Normal); Ketones,Urine Trace mg/dL (Negative); Leukocyte Esterase,Urine Small (Negative); Nitrite,Urine Negative (Negative); PH,Urine 5.5 pH Units (5.0-8.0); Protein,Urine >=300 mg/dL (Neg-Trace); Specific Gravity,Urine >= 1.030 (1.010-1.025); Urobilinogen,Urine Normal (Normal)
[2020-11-19 04:25] LABS: Bacteria,Urine Many per hpf (None-Few)
[2020-11-19 04:26] LABS: Budding Yeast,Urine Many per hpf (None Seen); RBC,Urine 50-100 per hpf (0-3); Squamous Epithelial Cell,Urine Few per hpf (None-Few); WBC,Urine 30-50 per hpf (0-3)
[2020-11-19 04:27] LABS: Calcium Oxalate Crystals,Urine Present per hpf
[2020-11-19 04:38] VITALS: PULSE 51
[2020-11-19 05:06] LABS: Eosinophils % 0.1 %; Hemoglobin 6.9 g/dL (12.9-16.9); Nucleated Red Blood Cells 0.2 /100 WBC (0)
[2020-11-19 05:08] LABS: Basophils % 0.2 %; Hematocrit 25.9 % (37.5-50.1); Immature Granulocytes % 1.4 % (0-4); Immature Platelets 8.6 % (1.1-6.1); Lymphocytes # 2.4 K/mcL (0.6-4.6); Lymphocytes % 9.8 %; Mean Corpuscular HGB Conc 26.6 g/dL (31.6-35.5); Mean Corpuscular Hemoglobin 23.4 pg (28.0-33.3); Mean Corpuscular Volume 87.8 fL (83.0-100.0); Mean Platelet Volume 11.6 fL (9.4-12.4); Monocytes # 0.8 K/mcL (0.0-1.3); Monocytes % 3.3 %; Neutrophils # 20.5 K/mcL (1.6-8.9); Red Blood Count 2.95 M/mcL (4.19-5.50); Red Cell Distribution Width 17.3 % (11.5-14.5); Segmented Neutrophils % 85.2 %; White Blood Count 24.1 K/mcL (4.3-11.1)
[2020-11-19 05:10] LABS: Basophils # 0.1 K/mcL (0.0-0.2); Platelet Count 76 K/mcL (140-400)
[2020-11-19 05:41] LABS: Albumin/Globulin Ratio 1.7 (1.1-2.2); Bilirubin,Direct 0.5 mg/dL (0.0-0.2); Bilirubin,Indirect 0.5 mg/dL (0.0-1.0); Calcium 6.2 mg/dL (8.6-10.3); Globulin 1.2 g/dL (2.4-3.5); Magnesium 2.2 mg/dL (1.6-2.6); Phosphorous 5.7 mg/dL (2.7-4.5); Potassium 4.1 mEq/L (3.5-5.1); Total Protein 3.2 g/dL (6.4-8.9)
[2020-11-19] MEDS ORDERED: Pantoprazole 40 MG VIAL IVP SCH (09:00)
== END 2020-11-19 05:09 | disposition expired | DRG 871 ==
LOC: ICNU 12:13 → EMEROOARM 12:13 → ICNU 18:00
PROVIDERS: ADMIT Pediatrics; ATTEND Pediatrics